=== PATIENT | female | born 1995 | race Caucasian/White ===

== ENCOUNTER 2023-02-28 16:04 | Outpatient (REF) | payer MEDICAID, SELFPAY ==
[2023-02-28 17:25] LABS: MANUAL DIFF FLAG NO
[2023-02-28 17:41] LABS: Basophils Percent Auto 0.2 % (0-2); Eosinophils Absolute Auto 0.1 X10*3/uL (0.0-0.4); Eosinophils Percent Auto 1.2 % (0-4); Hemoglobin 12.7 g/dl (12.0-16.0); Imm Gran Abs Auto 0.04 X10*3/uL (0.00-0.03); Imm Gran Pct Auto 0.4 % (0.0-0.4); Lymphocytes Percent Auto 27.8 % (20-40); Mean Corpuscular HGB Conc 32.6 g/dl (31.0-35.0); Mean Corpuscular Hemoglobin 29.5 pg (27.0-33.0); Mean Corpuscular Volume 90.5 fL (80.0-98.0); Mean Platelet Volume 10.6 fL (9.4-12.3); Monocytes Absolute Auto 0.8 X10*3/uL (0.1-1.2); Monocytes Percent Auto 7.4 % (2-11); Neutrophils Absolute Auto 6.7 x10*3/uL (2.0-8.3); Platelet Count 196 X10*3/uL (160-400); Red Blood Count 4.31 X10*6/uL (4.20-5.50); Red Cell Distribution Width 14.2 % (11.0-16.0); White Blood Count 10.6 X10*3/uL (4.8-10.8)
[2023-02-28 18:28] LABS: Iron 112 mcg/dL (30-160); Percent Iron Saturation 32 % (15-50); Total Iron Binding Capacity 352 mcg/dL (228-428); Unsaturated Iron Binding 240 ug/dL
[2023-02-28 18:35] LABS: Ferritin 43 ng/mL (10-122); Vitamin D 25-OH Total 11.6 ng/mL (>30)
[2023-03-01 06:07] LABS: HBsAGNum1 0.43 S/CO (0.00-0.99); HIV AB/AG Nonreactive (Nonreactive); HIV Num 1 0.05 S/CO (0.00-0.99); Hepatitis B Surface Antigen Negative (Negative)
[2023-03-01 06:09] LABS: ~HepC Num1 0.09 S/CO (0.00-0.79); ~Hepatitis C Antibody Nonreactive (Nonreactive)
[2023-03-01 11:55] LABS: CT PCR NOT DETECTED (Not Detect.); NG PCR NOT DETECTED (Not Detect.)
[2023-03-01 15:00] LABS: BV Int Neg Control Negative (Negative); BV Int Pos Control Positive (Positive)
[2023-03-02 08:50] LABS: Syphilis Screen Nonreactive (Nonreactive)
== END 2023-02-28 16:05 | disposition home or self-care (01) ==
LOC: HO.HHCL 16:04
PROVIDERS: Visit Provider Family Medicine
DX: Z11.4 Encounter for screening for human immunodeficiency virus [HIV] (principal); Z11.3 Encounter for screening for infections with a predominantly sexual mode of transmission; N89.8 Other specified noninflammatory disorders of vagina; E55.9 Vitamin D deficiency, unspecified; Z86.2 Personal history of diseases of the blood and blood-forming organs and certain disorders involving the immune mechanism
CPT/HCPCS: 0353U; 36415; 82306; 82728; 83540; 85025; 86780; 86803; 87086; 87340; 87389; 87480; 87510; 87660

== ENCOUNTER 2024-05-10 16:13 | Outpatient (REF) | payer MEDICAID, SELFPAY ==
[2024-05-11 05:43] LABS: CT PCR NOT DETECTED (Not Detect.); NG PCR NOT DETECTED (Not Detect.)
[2024-05-11 08:13] LABS: HIV AB/AG Nonreactive (Nonreactive); HIV Num 1 0.06 S/CO (0.00-0.99)
[2024-05-12 13:33] LABS: HCV Log PCR <1.18 NOT DETECTED Log IU/mL (NOT DETECTED); HepC Viral Load <15 NOT DETECTED IU/mL (NOT DETECTED)
[2024-05-14 17:58] LABS: RPR Rapid Plasma Reagin NON-REACTIVE (NON-REACTIVE)
== END 2024-05-10 16:14 | disposition home or self-care (01) ==
LOC: HO.HHCL 16:13
PROVIDERS: Visit Provider Registered Nurse
DX: Z30.09 Encounter for other general counseling and advice on contraception (principal)
CPT/HCPCS: 36415; 86592; 87389; 87491; 87522; 87591

== ENCOUNTER 2024-09-01 16:57 | Outpatient (REF) | payer MEDICAID, SELFPAY ==
--- NOTE | ~2024-09-01 | MR_ITS ---
EXAMINATION: MR BRAIN /TRIGEMINAL PROTOCOL WITHOUT AND WITH CONTRAST CLINICAL INFORMATION: Left facial pain. COMPARISON: None available. TECHNIQUE: Multiplanar, multisequence MRI of the brain/trigeminal protocol was obtained before and after the intravenous administration of 8.5 mL (Gadavist) without reported immediate complications. FINDINGS: The Meckel's caves demonstrated no signal abnormality or enhancing lesion. Cisternal segments and entry zones of the trigeminal nerves demonstrate no signal abnormality or enhancing mass. No signal abnormality or enhancing mass at the foramen ovale or foramen rotundum. No enhancing mass in the perimesencephalic cisterns. Flow-void signal within the main vessels is normal. There is a right anterior inferior cerebellar artery type III pattern. There is a left-sided anterior inferior cerebellar artery type II pattern. The cochlear and vestibular components of the 8th cranial nerves demonstrated no enhancing mass or signal abnormality. The main cerebral venous sinuses are patent. No restricted diffusion. No acute intracranial hemorrhage, mass effect, midline shift, hydrocephalus or herniation. Sellar/suprasellar region demonstrated no enhancing lesion or masses. The olfactory bulbs demonstrated no signal abnormality or enhancing lesion. No signal abnormality or enhancing lesion within the hippocampi. Craniocervical junction is intact and normal. Aldrich-white matter differentiation is normal. Mucosal thickening, ethmoid air cells and left frontal sinus and left frontal ethmoid recess. No signal abnormality or enhancing lesion within the orbits. Dextroconvex nasal septum configuration. MR/MR head/brain wo/w con IMPRESSION: No signal abnormality or enhancing lesion at the trigeminal nerves. Mild paranasal sinus disease, more conspicuous on the left side. Electronically signed by: Hamilton Beckett MD 09/03/2024 03:46 PM KORIN OSEGUERA
--- OUTSIDE RECORDS SUMMARY | 2024-09-01 17:01 | XMS_ITS | Encounter Summary ---
Author Organization [employer] Address [address] [facility] [address] [place] [address] Care Team Providers Care Radio Communication Coordinator Name Role Phone Queenie Valdovinos Primary Care Provider [phone] Reason for Visit * Reason Onset Date Comments Nurse Triage 08/09/2024 Encounter Details Date Type Department Care Team ([facility] st Contact Info) Description 08/09/2024 Telephone [facility] [address] [place] [address] Queenie Valdovinos FNP [address] [place], [place] [phone] Nurse Triage Social History Tobacco Use Types Packs/Day Years Used Date Smoking Tobacco: Some Days Cigarettes Smokeless Tobacco: Never Alcohol Use Standard Drinks/Week Comments Never 0 (1 standard drink = 0.6 oz pur e alcohol) Depression Answer Date Recorded Patient Health Questionnaire-9 Score 13 11/04/2023 Patient Health Questionnaire-9 Score 13 11/04/2023 Last PHQ-9: Questionnaire Data Not on file 0 11/04/2023 Housing Stability Answer Date Recorded What is your housing situation today? I do not have housing (Staying with others, in a hotel, in a care home, living outside on the street, on a beach, in a car, or in a park 05/16/[address] you li ve. Do you have problems with any of the following? None of the above 05/16/2023 Food Insecurity Answer Date Recorded Within the past 12 months, y ou worried that your food would run out before you got money to buy more: Never True 05/27/2023 Within the past 12 months,th e food you bought just didn't last and you didn't have enough money to get more: Never True Transportation Answer Date Recorded In the past 12 months, has l ack of transportation kept you from medical appts, meetings, work or from getting things needed for daily living? No 05/27/2023 Utilities Answer Date Recorded In the past 12 months, has t he electric, gas, oil or water company threatened to shut off services in your home? No 05/27/2023 Depression Answer Date Recorded Patient Health Questionnaire-2 Score 3 11/04/2023 Comments Unknown Sex and Gender Information Value Date Recorded Sex Assigned at Female 06/07/2022 10:33 AM EDT Legal Sex Female 10:33 AM EDT Gender Identity Female 06/07/2022 10:33 AM EDT Sexual Orientation Something else 06/07/2022 10 :33 AM EDT documented as of this encounter Miscellaneous Notes * Telephone Encounter - Bridget Gibbs RN - 08/09/2024 9:04 AM EST called pt to triage, spoke to pt. pt states diagnosed with Trigeminal Neuralgia a while ago, and having a flare. pt states episodes last from a few seconds to most of the day. pt not currently takinganything but Tylenol which does not help. pt uses pressure and heat mostly with varying degrees of relief. pt requesting Neurology referral. given appt tomorrow with [facility] provider at 9:15 for exam. advised home care: apply heat, pressure to the area, and call back as needed. pt understands and agrees with plan. insurance verified. Protocol Used: Neurologic Deficit (Adult) Protocol-Based Disposition: See in Office or Video Visit within 3 Days Positive Triage Question: * Pain and tingling one side of face. * All higher-acuity triage questions were negative Care Advice Discussed: * Reasons To Call Back - Symptoms do not go away within 10 to 15 minutes - You become worse * Telephone Encounter - Joseph Garcia - 08/09/2024 8:36 AM EST Symptom: Pain - Severe Outcome: Transfer to a nurse or provider NOW! Reason: Feels a excruciating stabbing pain on one side of her face. documented in this encounter Plan of Treatment Upcoming Encounters Date Type Department Care Team ([facility] st Contact Info) Description 09/14/2024 3:30 PM EST Office Visit [facility] MED & PEDS [address] [place] [address] Queenie Valdovinos FNP [address] [place] [address] documented as of this encounter Visit Diagnoses Not on filedocumented in this encounter Additional Health Concerns Assessment Noted Time PHQ-9 Depression Total Score: 13 11/03/ 024 3:52 PM EDT documented as of this encounter Care Teams Radio Communication Coordinator Relationship Specialty Start Date End Date Queenie Valdovinos FNP [address] [place] [address] PCP - General Family Medicine 04/07/22 documented as of this encounter
--- OUTSIDE RECORDS SUMMARY | 2024-09-01 17:01 | XMS_ITS | Encounter Summary ---
Author Organization [employer] Address [address] [facility] 7 [place] [address] Care Team Providers Care Grass Cutter Name Role Phone Queenie Valdovinos Primary Care Provider [phone] Reason for Referral * Imaging (Routine) - Authorized Specialty Diagnoses / Procedures Referred By Contac t Referred To Contact Radiology Diagnoses Electrical shock sensation Procedures Mr Brain w/ and w/o Contrast Hoa Valladares NP [address] [place] [address] Phone: tel: fax: [address] Phone: tel: fax: Referral ID Status Reason Start Date Expiration Date V isits Requested Visits Authorized [id number] Authorized 08/21/2024 08/21/2025 1 1 Reason for Visit * Reason Onset Date Comments MRI BRAIN ORDER 08/21/2024 Encounter Details Date Type Department Care Team (Late st Contact Info) Description 08/21/2024 Telephone [facility] [address] [place] [address] Vaishali Davis MD [address] [place] [phone] MRI BRAIN ORDER Social History Tobacco Use Types Packs/Day Years Used Date Smoking Tobacco: Some Days Cigarettes Passive Smoke Exposure: Current Smokeless Tobacco: Never Alcohol Use Standard Drinks/Week [...] with others, in a hotel, in a prison, living outside on the street, on a [...] as of this encounter Miscellaneous Notes * Addendum Note - Hoa Valladares NP - 08/21/2024 4:32 PM ESTAddended by: HOA VALLADARES on: 08/21/2024 04:32 PM Modules accepted: Orders * Telephone Encounter - Sharron Brandt - 08/21/2024 2:01 PM EST MRI BRAIN ORDER needs to be with and without contrast. documented in this encounter Plan of Treatment Upcoming Encounters Date Type Department Care Team (Late st Contact Info) Description 09/14/2024 3:30 PM EST Office Visit [facility] MED & PEDS [address] [place], [place] [phone] Queenie Valdovinos FNP [address] [place] [address] Scheduled Orders Name Type Priority Associated Diagnoses Orde r Schedule Mr Brain w/ and w/o Contrast Imaging Routine Electrical shock sensation Expected: 08/21/2024, Expires: 08/21/2025 documented as of this encounter Visit Diagnoses Diagnosis Electrical shock sensation- Primary documented in this encounter Additional Health Concerns Assessment Noted Time PHQ-9 Depression Total Score: 13 11/03/ 024 3:52 PM EDT documented as of this encounter Care Teams Grass Cutter Relationship Specialty Start Date End Date Queenie Valdovinos FNP [address] [place] [address] PCP - General Family Medicine 04/07/22 documented as of this encounter
--- OUTSIDE RECORDS SUMMARY | 2024-09-01 17:01 | XMS_ITS | Clinical Summary ---
Author Organization [employer] Address [address] [facility] 7t [place] [address] Care Team Providers Care 3D Animator Name Role Phone Queenie Valdovinos RASHAD Primary Care Provider [phone] Allergies Active Allergy Reactions Criticality Noted Date Comments Niño Rash Low 11/02/2017 Other reaction(s): RASH/HIVES Niño Flavoring Agent (Non-Screening) Hives 11/19/2019 Medications cetirizine (ZyrTEC) 10 MG tablet Take 10 mg by mouth in the morning. 2 Active fluticasone (Flonase) 50 MCG/ACT nasal spray USE 1-2 SPRAYS IN EACH NOSTRIL DAILY NEEDED FOR ALLERGY SYMPTOMS 2 Active Multiple Vitamin (Daily-Helen Multivitamin) tablet Take 1 tablet by mouth in the morning. 2 Active cholecalciferol (Vitamin D-3) 50 MCG (2000 UT) capsule Take 1 capsule (50 mcg) by mouth in the morning. 30 capsule 11 3 Active hydrOXYzine pamoate (Vistaril) 25 MG capsuleIndication s:Anxiety TAKE 1 CAPSULE 4 TIMES PER DAY NEEDED MAY TAKE 2 CAPS AT ONCE, DO NOT EXCEED 4 CAPS IN 24HRS 100 capsule 3 3 Active mirtazapine (Remeron) 7.5 MG tabletIndications :Anxiety TAKE 1 TABLET BY MOUTH AT BEDTIME. 30 tablet 1 4 Active FLUoxetine (PROzac) 40 MG capsuleIndication s:Anxiety TAKE 1 CAPSULE BY MOUTH DAILY 90 capsule 3 4 Active Drospirenone (Slynd) 4 MG tabletIndications : control counseling,Dysmen orrhea Take 1 tablet by mouth Once per day. 90 tablet 3 4 Active amphetamine-dextr oamphetamine (Adderall) 10 MG tabletIndications :Attention deficit hyperactivity disorder (ADHD), unspecified ADHD type TAKE 1 TABLET BY MOUTH EVERY DAY AFTER LUNCH 28 tablet 4 Active amphetamine-dextr oamphetamine XR (Adderall XR) 20 MG 24 hr capsuleIndication s:Attention deficit hyperactivity disorder (ADHD), unspecified ADHD type TAKE 1 CAPSULE BY MOUTH EVERY DAY. DO NOT CRUSH OR CHEW. 28 capsule 4 Active carBAMazepine XR (TEGretol-XR) 100 MG 12 hr tablet Take 1 tab orally twice a day for trigeminal neuralgia 60 tablet 3 5 Active Active Problems Problem Noted Date Diagnosed Date Alternating constipation and diarrhea 05/28/2024 Assessment & Plan (05/28/2024 9:48 PM EDT): - History of GI symptoms dating back to childhood (first recalled around 6 y/o) - Symptoms include nausea, abdominal pain, bloating, alternative constipation and diarrhea, pain/discomfort with Bms. Worsens with menses - Reports GI eval in the past, although unclear regarding testing/tx/diagnoses. - DDX: IBS vs H Pylori vs IBD vs gastroenteritis vs med SE vs other - No red flag symptoms, referral to GI for further eval placed 05/28/24 Dysmenorrhea 04/29/2024 Overview (04/29/2024): Following with [facility]YPING [facility] (consult Jun 2023) Assessment & Plan (05/28/2024 9:39 PM EDT): -Initiated on POP Slynd on 04/27/24. Med med use and SE -Did not receive medication, called and spoke with [facility] in [place] and they will plan to fill today Assessment & Plan (04/29/2024 7:39 PM EDT): -Initiated on POP Slynd on 04/27/24. Med med use and SE -Currently with menses, encourage back up method such as condom for the next 7 days Attention deficit hyperactivity disorder (ADHD) 06/18/2023 Overview (05/28/2024): Continues with Adderall 20mg XR QAM and Adderall 10mg daily after lunch BH: engaged with therapy Assessment & Plan (05/28/2024 9:40 PM EDT): Good response and therapeutic effect Denies med SE Continue with current therapy Assessment & Plan (04/29/2024 7:48 PM EDT): Noting improvement in symptoms for 4-6 hours; however, declining therapeutic effect in the afternoon. START Adderall 10mg daily after lunch. Reviewed med safety and SE Assessment & Plan (07/24/2023 8:25 PM EST): ?? Noting improvement in symptoms for 4-6 hours after initiation of Adderall 10mg XR. However, declining therapeutic effect in the afternoon. ?? Adderall 5mg immediate release after lunch did not seem to have noted benefit/effect ?? Plan: ?? STOP Adderall 5mg after lunch ?? CONT Adderall 10mg XR QAM. During follow up visit, may plan to increase to 20mg XR QAM. Assessment & Plan (06/18/2023 5:16 PM EST): ?? Noting improvement in symptoms for 4-6 hours after initiation of Adderall 10mg XR. However, declining therapeutic effect in the afternoon. Shared decision making to initiate Adderall 5mg immediate release after lunch. Reviewed med safety and use Routine health maintenance 10/25/2022 Overview (04/01/2023): Optometry: discuss at f/u Dental: discuss at f/u Pap: 12/13/2017 NILM. Believes she had another one collected during with last child WNL Electrical shock sensation 10/25/2022 Overview (10/25/2022): -Episodes described as electric zaps that occurred on half of face and would radiate into jaw bone -Initial episode Jun 2020 -Episodes are currently less severe in nature, but continue to be bothersome -Differential of possible trigeminal neuralgia -Initial eval by [facility] - Dr. Dodd in May 2022. Will request notes. -Request for 2nd opinion, referral placed 10/25/22 Assessment & Plan (02/26/2023 10:45 AM EDT): Contact info for [facility] provided Anxiety 03/10/2020 Overview (06/18/2023): ?? Established with therapist Catrachita through [facility] (on wait list for psychiatrist through [facility]) ?? Cont fluoxetine 40mg daily ?? Cont hydroxyzine 25mg QID PRN Assessment & Plan (09/11/2023 6:00 PM EST): -Planning to start mirtazapine 7.5mg daily when appropriate with home environment Assessment & Plan (07/24/2023 8:23 PM EST): - Start mirtazapine 7.5mg nightly. Reviewed med safety and SE. - Follow up in 1-2 weeks Assessment & Plan (04/02/2023 3:21 PM EDT): Follow up in 1 month, sooner PRN Assessment & Plan (02/26/2023 10:44 AM EDT): Plan: PCP to contact therapist for further discussion of psych med management. Encounters Date Type Department Care Team Description 08/21/2024 Telephone [facility] [employer] [address] [place] [address] Vaishali Davis MD MRI BRAIN ORDER 08/10/2024 9:15 AM EST Office Visit [facility] & PEDS [address] [place], [place] [phone] Vaishali Davis MD Electrical shock sensation (Primary Dx); Left-sided face pain; Family history of trigeminal neuralgia 08/10/2024 Travel 08/09/2024 Telephone [facility] MEDICINE [address] [place] [address] Queenie Valdovinos FNP Nurse Triage 08/07/2024 Telephone [facility] [address] [place] [address] Queenie Valdovinos FNP Referral 07/25/2024 Refill [facility] [address] [place] [address] Queenie Valdovinos FNP Attention deficit hyperactivity disorder (ADHD), unspecified ADHD type from Last 3 Months Immunizations Name Administration Dates Next Due DTaP 04/18/2001, 8,1996,05/23,1996 HPV, Quadrivalent 02/13/2007,10/14/2006,08/16/19 07 Hep B, Unspecified 1996,1996, 996 HiB, unspecified 05/22/1997, 6,1996,03/21 IPV 04/18/2001, 8,1996,05/23,1996 Influenza injectable quadriv alent preservative free 05/30/2020,06/10/2018 Influenza, IIV3, injectable 04/27/2012, 7 Influenza, seasonal, injecta ble, preservative free 06/05/2014 MMR 03/24/2000,05/22/1997 Meningococcal ACWY, unspecified 04/27/2012 Tdap 04/09/2020,03/06/2018,06/05/2014 Varicella 09/04/1997,05/22/1997 Family History Medical History Relation Name Comments Glaucoma Maternal Grandmother Relation Name Status Comments Maternal Grandmother Social History Tobacco Use Types Packs/Day Years Used Date Smoking Tobacco: Some Days Cigarettes Passive Smoke Exposure: Current Smokeless Tobacco: Never Tobacco Cessation:Ready to Q uit: Not Asked; Counseling Given: Not Answered Alcohol Use Standard Drinks/Week Comments Never 0 [...] with others, in a hotel, in a detention, living outside on the street, on a [...] Something else 06/07/2022 10 :33 AM EDT Last Filed Vital Signs Vital Sign Reading Time Taken Comments Blood Pressure 112/66 08/10/2024 9:27 AM EST Pulse 72 08/10/2024 9:27 AM EST Temperature 36.4 ??C (97.5 ??F) 08/10/2024 9:27 AM ES T Respiratory Rate 20 08/10/2024 9:27 AM EST Oxygen Saturation 98% 08/10/2024 9:27 AM EST Inhaled Oxygen Concentration - - Weight 89.8 kg (198 lb) 08/10/2024 9:27 AM EST Height 171.5 cm (5' 7.5 ) 08/10/2024 9:27 AM EST Body Mass Index 30.55 08/10/2024 9:27 AM EST Plan of Treatment Upcoming Encounters Date Type Department Care Team ([facility] st Contact Info) Description 09/14/2024 3:30 PM EST Office Visit [facility]EDS [address] [place] [address] Queenie Valdovinos, RASHAD [address] [place] [address] Health Maintenance Due Date Last Done Comments Pneumococcal Vaccine: Pediatrics (0 to 5 Years) and At-Risk Patients (6 to 64 Years) (1 of 2 - PCV) 02/05/2002 Alcohol/Substance Use Screening 2008 Family Planning (PISQ) 02/05/2011 Pap Smear 02/05/2017 SDOH Screening 02/26/2024 02/25/2023 COVID-19 Vaccine ( season) 2024 12/28/2020, 11/30/2020 Influenza Vaccine (#1) 2024 , 06/10/2018, 06/05/2014, Additional history exists Depression Monitoring (PHQ-9) 05/06/2024 11/04/2023, 11/04/2023 Depression Screening 11/03/2024 11/04/2023, 11/04/19 Tobacco Screening 08/10/2025 08/10/2024 Lipid Panel 10/28/2027 10/27/2022 DTaP/Tdap/Td Vaccines (9 - Td or Tdap) 04/09/2030 04/09/2020, 03/06/2018, 06/05/2014, Additional history exists Zoster Vaccines (1 of 2) 02/05/2046 RSV Patients and Patients Aged 60 years or older (1 - 1-dose 75+ series) 02/05/2071 Hepatitis B Vaccines Completed 1996, 1996, 1996 HIB Vaccines Completed 05/22/1997, 07/08, 1996, Additional history exists IPV Vaccines Completed 04/18/2001, 03/09, 1996, Additional history exists HPV Vaccines Completed 02/13/2007, 04/2007, 10/14/2006, Additional history exists Meningococcal Vaccine Completed 04/27/2012 HIV Screening Completed 05/10/2024, 02/06, 10/27/2022, Additional history exists Hepatitis C Screening Completed 05/10/2024 , 02/28/2023, 10/27/2022, Additional history exists Hepatitis A Vaccines Aged Out No long er eligible based on patient's age to complete this topic RSV under 20 months Aged Out No longe r eligible based on patient's age to complete this topic Rotavirus Vaccines Aged Out No longer eligible based on patient's age to complete this topic Procedures Procedure Name Priority Date/Time Associated Diagnosis Comments HEPATITIS C VIRAL RNA, QUANTITATIVE, REAL-TIME PCR Routine 05/10/2024 4:16 PM EDT control counseling HIV 1/2 ANTIGEN/ANTIBODY, FOURTH GENERATION W/RFL Routine 05/10/2024 4:16 PM EDT control counseling LIPID PANEL, STANDARD Routine 10/27/2022 12:25 PM EDT Routine health maintenance from Last 3 Months or Most Recently Relevant to Health Maintenance Results * Hepatitis C Viral RNA, Quantitative, Real-Time PCR (05/10/2024 4:16 PM EDT) Hepatitis C Viral Load <15 NOT DETECTED NOT DETECTED IU/mL [facility] HCV Log PCR <1.18 NOT DETECTED NOT DETECTED Log IU/mL [facility] Comment:For additional infor matdewayne, please refer tohttp://education.[employer].vidCoin/faq/SUW79a1(This link is being provided for informational/educational purposes only.)THIS TEST WAS PERFORMED AT:[employer] [place] [phone] SORIANO MD Blood 05/10/2024 4:16 PM EDT 05/10/2024 5:19 PM EDT us Queenie Valdovinos [employer] LAB BLOOD ORDERABLES Final Res ult [facility] [address] [place], [place] [phone] * HIV-1/2 Antigen and Antibodies, Fourth Generation, with Reflexes (05/10/2024 4:16 PM EDT) Pathologist [facility] HIV AB/AG Nonreactive Nonreactive [facility] Comment:HIV-1 p24 Ag and/or HIV-1/HIV-2 Ab not detected.A test result that is nonreactive does not exclude thepossibility of exposure to or infection with HIV-1 and/orHIV-2. Nonreactive results in this assay for individualswith prior exposure to HIV-1 and/or HIV-2 may be due toantigen and antibody levels that are below the limit ofdetection of this assay.The [employer] HIV Ag/Ab Combo assay result andsupplemental assay results should be interpreted inconjunction with the patient's clinical presentation,history and other laboratory results. If the results areinconsistent with clinical evidence, additional testing issuggested to confirm the result. Blood Venous blood specimen / Unknown 05/10/2024 4:16 PM EDT 05/10/2024 5:19 PM EDT us Queenie Valdovinos [facility] LAB BLOOD ORDERABLES Final Res ult [facility] [address] [place] [phone] * (ABNORMAL) Lipid Panel, Standard (10/27/2022 12:25 PM EDT) [facility] Cholesterol, Total 131 <200 mg/dL [facility] [place] [facility] HDL Cholesterol 42(L) > OR = 50 mg/dL [facility] [place] [facility] Triglycerides 73 <150 mg/dL [facility] [place] [facility] LDL Cholesterol 74 mg/dL (calc) [facility] [place] [facility] Comment: Reference range: <100 Desirable range <100 mg/dL for primary prevention; ?? <70 mg/dL for patients with CHD or diabetic patients with > or = 2 CHD risk factors. LDL-C is now calculated using the Edwin-Diaz calculation, which is a validated novel method providing better accuracy than the Friedewald equation in the estimation of LDL-C. Edwin SS et al. BETSY. 2013;310(19): 5410-3920 (http://education.[employer]vidCoin/faq/EPZ963) Chol/HDLC Ratio 3.1 <5.0 (calc) [facility] [place] [facility] Non-HDL Cholesterol 89 <130 mg/dL (calc) [facility] [place] [facility] Comment: For patients with diabetes plus 1 major ASCVD risk factor, treating to a non-HDL-C goal of <100 mg/dL (LDL-C of <70 mg/dL) is considered a therapeutic option. Blood Venous blood specimen / Unknown 10/27/2022 12:25 PM EDT 10/27/2022 12:28 PM EDT Queenie Valdovinos [employer] LAB BLOOD ORDERABLES Final Res ult [facility] [address], [address] [place] [address] [facility] [address] [place] [phone] from Last 3 Months or Most Recently Relevant to Health Maintenance Insurance [facility] C3 Care Teams 3D Animator Relationship Specialty Start Date End Date Queenie Valdovinos FNP [address] [place] [phone] PCP - General Family Medicine 04/07/22
--- OUTSIDE RECORDS SUMMARY | 2024-09-01 17:01 | XMS_ITS | Encounter Summary ---
Author Organization [employer] Address [address] [facility] [address] [place] [address] Care Team Providers Care Interactive Art Director Name Role Phone Jey Valdovinosle SEAL EXTRUSION OPERATOR Primary Care Provider Reason for Referral * Imaging (Routine) - Canceled Specialty Diagnoses / Procedures Referred By Contac t Referred To Contact Radiology Diagnoses Electrical shock sensation Left-sided face pain Family history of trigeminal neuralgia Procedures MRI BRAIN W CONTRAST Vaishali Davis MD [address] [place] [address] Phone: tel: fax: [address] Phone: tel: fax: Referral ID Status Reason Start Date Expiration Date V isits Requested Visits Authorized [id number] Canceled 08/10/2024 08/10/2025 1 1 Encounter Details Date Type Department Care Team (Late st Contact Info) Description 08/10/2024 9:15 AM EST Office Visit [facility] [address] [place], [place] [phone] Vaishali Davis MD [address] [place], [place] [phone] Electrical shock sensation (Primary Dx); Left-sided face pain; Family history of trigeminal neuralgia Social History Tobacco Use Types Packs/Day Years [...] with others, in a hotel, in a [place] [facility] [place], living outside on the street, on a [...] AM EDT documented as of this encounter Last Filed Vital Signs Vital Sign Reading [...] Mass Index 30.55 08/10/2024 9:27 AM EST documented in this encounter Progress Notes * Vaishali Davis MD - 08/10/2024 9:15 AM EST Subjective Patient ID: Siria Gonzalez is a 29 y.o. female who presents for pain side of face. Siria is a 29 y/o female patient of VIOLET Valdovinos here as a walk in patient with left facial pain ( severe and acute) . She thinks she has trigeminal neuralgia , hurts when she chews,bites,drinks,etc.. Pain is shooting,electric zap like. Only meds are adderal and fluoxetine.First episode was in 2021 and lasted 8 days.Went to Er at [facility] and no imaging studies were done.Saw neurology and was told needed an mri but it wasn't scheduled properly so it was never done. Review of Systems Constitutional: Negative for activity change, chills, fever and unexpected weight change. HENT: Negative for dental problem, drooling, ear discharge, ear pain, facial swelling, hearing loss, mouth sores, rhinorrhea, sore throat, trouble swallowing and voice change. Left jaw pain Respiratory: Negative for cough, shortness of breath and wheezing. Cardiovascular: Negative for chest pain, palpitations and leg swelling. Gastrointestinal: Negative for abdominal pain and blood in stool. Endocrine: Negative for polydipsia and polyuria. Genitourinary: Negative for decreased urine volume, difficulty urinating, dysuria and hematuria. Musculoskeletal: Negative for arthralgias and gait problem. Skin: Negative for color change and rash. Neurological: Positive for headaches. Negative for dizziness, tremors, seizures, syncope, facial asymmetry, speech difficulty, weakness, light-headedness and numbness. Hematological: Negative for adenopathy. Psychiatric/Behavioral: Negative for dysphoric mood, hallucinations, sleep disturbance and suicidalideas. The patient is not nervous/anxious. Objective BP 112/66 (BP Location: Left arm, Patient Position: Sitting, BP Cuff Size: Adult) Pulse72 Temp 97.5 ??F (36.4 ??C) (Oral) Resp 20 Ht 5' 7.5 (1.715 m) Wt 198 lb (89.8 kg) SpO2 98% BMI 30.55 kg/m?? Physical Exam Vitals reviewed. Constitutional: Appearance: Normal appearance. She is not toxic-appearing. HENT: Head: Normocephalic. Right Ear: Tympanic membrane, ear canal and external ear normal. Left Ear: Tympanic membrane, ear canal and external ear normal. Nose: Nose normal. No congestion. Mouth/Throat: Mouth: Mucous membranes are moist. Pharynx: Oropharynx is clear. No oropharyngeal exudate or posterior oropharyngeal erythema. Eyes: General: No visual field deficit. Extraocular Movements: Extraocular movements intact. Conjunctiva/sclera: Conjunctivae normal. Pupils: Pupils are equal, round, and reactive to light. Neck: Thyroid: No thyroid mass. Cardiovascular: Rate and Rhythm: Normal rate and regular rhythm. Pulmonary: Effort: Pulmonary effort is normal. No respiratory distress. Breath sounds: Normal breath sounds. Musculoskeletal: Cervical back: Normal range of motion. No erythema, rigidity or tenderness. Lymphadenopathy: Cervical: No cervical adenopathy. Skin: Findings: No erythema, lesion or rash. Neurological: General: No focal deficit present. Mental Status: She is alert and oriented to person, place, and time. Sensory: Sensation is intact. Motor: Motor function is intact. Psychiatric: Mood and Affect: Mood normal. Behavior: Behavior normal. Assessment/Plan Diagnoses and all orders for this visit: Electrical shock sensation - MRI BRAIN W CONTRAST; Future Left-sided face pain Comments: Seems she has trigeminal neuralgia,diagnosis never determined by imaging study.MRI of brain with contrast ordered today,importance of keeping appointment discussed with her. F/U with PCP scheduled tofollow up on MRI findings and maybe neuro referral etc.. Low dose 100 mg bid carbamazepine started as well for pain relief and prevention. Orders: - MRI BRAIN W CONTRAST; Future Family history of trigeminal neuralgia - MRI BRAIN W CONTRAST; Future Other orders - carBAMazepine XR (TEGretol-XR) 100 MG 12 hr tablet; Take 1 tab orally twice a day for trigeminal neuralgia documented in this encounter Plan of Treatment Upcoming Encounters Date Type Department Care Team (Late st Contact Info) Description 09/14/2024 3:30 PM EST Office Visit [facility] [address] [place] [address] Queenie Valdovinos FNP [address] [place] [address] Scheduled Orders Name Type Priority Associated Diagnoses Orde r Schedule MRI BRAIN W CONTRAST Imaging Routine Electrical shock sensation Left-sided face pain Family history of trigeminal neuralgia Expected: 08/10/2024, Expires: 08/10/2025 documented as of this encounter Visit Diagnoses Diagnosis Electrical shock sensation- Primary Left-sided face pain Headache Family history of trigeminal neuralgia Family history of other neurological diseases documented in this encounter Additional Health Concerns Assessment Noted Time PHQ-9 Depression Total Score: 13 024 3:52 PM EDT documented as of this encounter Care Teams Interactive Art Director Relationship Specialty Start Date End Date Queenie Valdovinos FNP [address] [place] [address] PCP - General Family Medicine 04/07/22 documented as of this encounter
--- OUTSIDE RECORDS SUMMARY | 2024-09-01 17:01 | XMS_ITS | Encounter Summary ---
Author Organization [employer] Address [address] [facility] [address] [place] [address] Care Team Providers Care Purchase Request Editor Name Role Phone Queenie Valdovinos LICENSED LOAN OFFICER Primary Care Provider [phone] Encounter Details Date Type Department Care Team (Latest Contact Info) Description 08/10/2024 Travel Social History Tobacco Use Types Packs/Day Years [...] with others, in a hotel, in a senior care, living outside on the street, on a [...] AM EDT documented as of this encounter Plan of Treatment Upcoming Encounters Date Type Department Care Team (Late st Contact Info) Description 09/14/2024 3:30 PM EST Office Visit [facility] [address] [place] [address] Queenie Valdovinos FNP [address] [place] [address] documented as of this encounter Visit Diagnoses Not on filedocumented in this encounter Additional Health Concerns Assessment Noted Time PHQ-9 Depression Total Score: 13 024 3:52 PM EDT documented as of this encounter Care Teams Purchase Request Editor Relationship Specialty Start Date End Date Queenie Valdovinos FNP [address] [place] [address] PCP - General Family Medicine 04/07/22 documented as of this encounter
--- OUTSIDE RECORDS SUMMARY | 2024-09-01 17:01 | XMS_ITS | Encounter Summary ---
Author Organization [employer] Address [address] [facility] [address] [place] [address] Care Team Providers Care Break And Load Operator Name Role Phone Queenie Valdovinos Primary Care Provider [phone] Reason for Visit * Reason Onset Date Comments Referral 08/07/2024 Encounter Details Date Type Department Care Team ([facility] st Contact Info) Description 08/07/2024 Telephone [facility] [address] [place] [address] Queenie Valdovinos FNP [address] [place], [place] [phone] Referral Social History Tobacco Use Types Packs/Day Years [...] with others, in a hotel, in a correction, living outside on the street, on a [...] encounter Miscellaneous Notes * Telephone Encounter - Carlitos Tran - 08/07/2024 9:38 AM EST Tc from pt requesting a referral to neurology and pt states that they are having a stabbing/electric shock feeling on left side of face and pt states if you can recommend some pain relief it would begreat because pt states they can not work with the nerve pain. documented in this encounter Plan of Treatment Upcoming Encounters Date Type Department Care Team (Late st Contact Info) Description 09/14/2024 3:30 PM EST Office Visit [facility] [address] [place] [address] Queenie Valdovinos FNP [address] [place] [address] documented as of this encounter Visit Diagnoses Not on filedocumented in this encounter Additional Health Concerns Assessment Noted Time PHQ-9 Depression Total Score: 13 11/03/ 024 3:52 PM EDT documented as of this encounter Care Teams Break And Load Operator Relationship Specialty Start Date End Date Queenie Valdovinos FNP [address] [place] [address] PCP - General Family Medicine 04/07/22 documented as of this encounter
[2024-09-01] MEDS: gadobutroL 10 ML VIAL IVPUSH (17:39)
== END 2024-09-01 16:58 | disposition home or self-care (01) ==
LOC: HO.MRI 16:57
PROVIDERS: PCP Registered Nurse; Visit Provider Pediatrics
DX: R20.8 Other disturbances of skin sensation (principal); R51.9 Headache, unspecified; Z82.0 Family history of epilepsy and other diseases of the nervous system
CPT/HCPCS: 70553; A9585

== ENCOUNTER → 2024-09-01 17:09 | Outpatient (BNV) | payer MEDICAID, SELFPAY | PROVIDERS: PCP Registered Nurse; Visit Provider Radiology Diagnostic Radiology | DX: R51.9 Headache, unspecified (principal) | CPT/HCPCS: 70553 ==

== ENCOUNTER 2024-11-13 17:06 | Outpatient (REF) | payer MEDICAID, SELFPAY ==
--- OUTSIDE RECORDS SUMMARY | 2024-11-13 19:15 | XMS_ITS | Clinical Summary ---
Author Organization [employer] Address [address] [place] [address] Care Team Providers Care Sql Server Bi Developer Name Role Phone Queenie Valdovinos RASHAD Primary Care Provider Allergies Active Allergy Reactions Criticality Noted Date Comments Niño Rash Low 11/02/2017 Other reaction(s): RASH/HIVES Niño Flavoring Agent (Non-Screening) Hives 11/19/2019 Medications cetirizine (ZyrTEC) 10 MG tablet Take 10 mg by mouth in the morning. 04/15/20 22 Active Multiple Vitamin (Daily-Helen Multivitamin) tablet Take 1 tablet by mouth in the morning. 06/06/20 22 Active cholecalciferol (Vitamin D-3) 50 MCG (2000 UT) capsule Take 1 capsule (50 mcg) by mouth in the morning. 30 capsule 11 03/02/20 23 Active hydrOXYzine pamoate (Vistaril) 25 MG capsuleIndicatio ns:Anxiety TAKE 1 CAPSULE 4 TIMES PER DAY NEEDED MAY TAKE 2 CAPS AT ONCE, DO NOT EXCEED 4 CAPS IN 24HRS 100 capsule 3 06/17/20 23 Active mirtazapine (Remeron) 7.5 MG tabletIndication s:Anxiety TAKE 1 TABLET BY MOUTH AT BEDTIME. 30 tablet 1 10/06/19 24 Active Drospirenone (Slynd) 4 MG tabletIndication s: control counseling,Dysme norrhea Take 1 tablet by mouth Once per day. 90 tablet 3 04/27/20 24 Active carBAMazepine XR (TEGretol-XR) 100 MG 12 hr tablet Take 1 tab orally twice a day for trigeminal neuralgia 60 tablet 3 08/10/19 25 Active fluticasone (Flonase) 50 MCG/ACT nasal spray Administer 1 spray into each nostril 2 times daily. Shake gently. Before first use, prime pump. After use, clean tip and replace cap. 16 g 1 09/21/19 25 Active levonorgestrel (Plan B) 1.5 MG tablet Take 1 tablet (1.5 mg) by mouth 1 (one) time for 1 dose. Take up to 3 days after sex as needed 1 tablet 11 11/14/19 25 2024 Active ibuprofen (IBU) 800 MG tablet 1 tablet every 8 hours with food during menses, up to 7 days. 63 tablet 11/14/19 25 Active amphetamine-dext roamphetamine XR (Adderall XR) 20 MG 24 hr capsuleIndicatio ns:Attention deficit hyperactivity disorder (ADHD), unspecified ADHD type TAKE 1 CAPSULE BY MOUTH EVERY DAY. DO NOT CRUSH OR CHEW. 28 capsule 11/14/19 25 Active amphetamine-dext roamphetamine (Adderall) 10 MG tabletIndication s:Attention deficit hyperactivity disorder (ADHD), unspecified ADHD type TAKE 1 TABLET BY MOUTH EVERY DAY AFTER LUNCH 28 tablet 11/14/19 25 Active FLUoxetine (PROzac) 40 MG capsuleIndicatio ns:Anxiety TAKE 1 CAPSULE BY MOUTH DAILY 90 capsule 3 11/14/19 25 Active FLUoxetine (PROzac) 40 MG capsuleIndicatio ns:Anxiety TAKE 1 CAPSULE BY MOUTH DAILY 90 capsule 3 04/23/20 24 2024 Discontinued(R eorder (will not trigger notification to Pharmacy)) amphetamine-dext roamphetamine (Adderall) 10 MG tabletIndication s:Attention deficit hyperactivity disorder (ADHD), unspecified ADHD type TAKE 1 TABLET BY MOUTH EVERY DAY AFTER LUNCH 28 tablet 07/27/20 24 2024 Discontinued(R eorder (will not trigger notification to Pharmacy)) amphetamine-dext roamphetamine XR (Adderall XR) 20 MG 24 hr capsuleIndicatio ns:Attention deficit hyperactivity disorder (ADHD), unspecified ADHD type TAKE 1 CAPSULE BY MOUTH EVERY DAY. DO NOT CRUSH OR CHEW. 28 capsule 07/27/20 24 2024 Discontinued(R eorder (will not trigger notification to Pharmacy)) Active Problems Problem Noted Date Diagnosed Date Paranasal sinus disease 09/21/2024 Alternating constipation and diarrhea 05/28/2024 Assessment & [...] 05/28/24 Dysmenorrhea 04/29/2024 Overview (04/29/2024): Following with [facility] [employer] (consult Jun 2023) Assessment & Plan (05/28/2024 9:39 PM EDT): -Initiated on POP Slynd on 04/27/24. Med med use and SE -Did not receive medication, called and spoke with [facility] in [place] and they will plan to fill today [...] child WNL Electrical shock sensation 10/25/2022 Overview (10/08/2024): -Episodes described as electric zaps that occurred on left half of face and radiate into jaw bone -Initial episode Jun 2020, have been increasing in frequency from once every few months to once every few weeks. -Differential includes trigeminal neuralgia -Initiated on carbamazepine 100mg BID with some symptom relief -MRI brain 09/22/24 impression: There is a right anterior inferior cerebellar artery type III pattern. There is a left-sided anterior inferior cerebellar artery type II pattern. No signal abnormality or enhancing lesion at the trigeminal nerves. -Referral to [facility] sent 10/08/24 Assessment & Plan (02/26/2023 10:45 AM EDT): Contact info for [facility] provided Anxiety 03/10/2020 Overview (06/18/2023): ?? Established with therapist Catrachita through [facility] (on wait list for psychiatrist through [facility]) ?? Cont fluoxetine 40mg daily ?? Cont [...] Encounters Date Type Department Care Team Description 11/13/2024 2:15 PM EDT Procedure Visit [facility] MEDICINE [address] [place] [address] Simi Thomas CNM Menorrhagia with regular cycle (Primary Dx); Cervical cancer screening; Family planning counseling; Attention deficit hyperactivity disorder (ADHD), unspecified ADHD type; Anxiety 11/13/2024 Travel 11/01/2024 Patient Outreach [facility] [address] [place] [address] Queenie Valdovinos FNP Care Coordination (Outreach) 10/19/2024 Population Health Risk Score [facility] Department [address] [phone] Provider, Population Health Generic 10/19/2024 Patient Outreach [facility] [address] [place] [address] Queenie Valdovinos FNP Care Coordination (Outreach) 10/08/2024 10:15 AM EST Office Visit [facility] [address] [place] [address] Queenie Valdovinos FNP Electrical shock sensation (Primary Dx); Encounter for immunization 10/08/2024 Travel 10/05/2024 Telephone [facility] [address] [place] [address] Emilee Alvarenga MA Chart Prep 10/03/2024 Patient Outreach [facility] [address] [place] [address] Queenie Valdovinos FNP Care Coordination (Outreach) 09/26/2024 Patient Outreach [facility] [address] [place] [address] Queenie Valdovinos FNP Care Coordination (Outreach) 09/21/[address] [address] Hoa Hill NP Paranasal sinus disease (Primary Dx) 09/21/[address] [address] Hoa Hill NP 09/14/2024 Patient Outreach [facility] [address] [place] [address] Queenie Valdovinos FNP Care Coordination (Outreach) 09/11/2024 Telephone [facility] [address] [place] [address] Emilee Alvarenga MA Chart Prep 09/11/2024 Patient Outreach [facility] [address] [place] [address] Queenie Valdovinos FNP Care Coordination (Outreach) 09/10/[address] [address] Talia Jackman, RN NTTS 09/05/2024 Telephone [facility] [address] [place] [address] Queenie Valdovinos FNP Nurse Triage 09/05/2024 Patient Outreach [facility] [address] [place] [address] Queenie Valdovinos FNP 09/05/2024 Patient Outreach [facility] [address] [place] [address] Queenie Valdovinos FNP Care Coordination (Outreach) 08/21/2024 Telephone [facility] [address] [place] [address] [phone] Vaishali Davis MD MRI BRAIN ORDER from Last 3 Months Immunizations Name Administration Dates Next Due DTaP 04/18/2001, 8,1996,05/23,1996 HPV, Quadrivalent 02/13/2007,10/14/2006,08/16/19 07 Hep B, Unspecified 1996,1996, 996 HiB, unspecified 05/22/1997, 6,1996,03/21 IPV 04/18/2001, 8,1996,05/23,1996 Influenza injectable quadriv alent preservative free 05/30/2020,06/10/2018 Influenza, IIV3, injectable 04/27/2012, 7 Influenza, seasonal, injecta ble, preservative free 10/08/2024,06/05/2014 MMR 03/24/2000,05/22/1997 Meningococcal ACWY, unspecified 04/27/2012 Pfizer Covid-19 Vaccine 12+ 10/08/2024 Tdap 04/09/2020,03/06/2018,06/05/2014 Varicella 09/04/1997,05/22/1997 Family History Medical History Relation Name Comments Glaucoma Maternal Grandmother Breast cancer Neg Hx Colon cancer Neg Hx Ovarian cancer Neg Hx Relation Name Status Comments Maternal Grandmother Social History Tobacco Use Types Packs/Day Years Used Date Smoking Tobacco: Former Cigarettes Passive Smoke Exposure: Current Smokeless Tobacco: Current Tobacco Cessation:Ready to Q uit: Not Asked; Counseling Given: Not Answered Comments:Vapes 1% Alcohol Use Standard Drinks/Week Comments Never 0 (1 standard drink = 0.6 oz pur e alcohol) Depression Answer Date Recorded Patient Health Questionnaire-9 Score 13 11/04/2023 Patient Health Questionnaire-9 Score 13 11/04/2023 Last PHQ-9: Questionnaire Data Not on file 0 11/04/2023 Housing Stability Answer Date Recorded What is your housing situation today? I have sara hernandez 09/05/[address] you li ve. Do you have problems with any of the following? None of the above 09/05/2024 Food Insecurity Answer Date Recorded Within the past 12 months, y ou worried that your food would run out before you got money to buy more: Never True 09/05/2024 Within the past 12 months,th e food you bought just didn't last and you didn't have enough money to get more: Never True Transportation Answer Date Recorded In the past 12 months, has l ack of transportation kept you from medical appts, meetings, work or from getting things needed for daily living? Yes, it has kept me from medical appointments or getting medications. 09/05/2024 Utilities Answer Date Recorded In the past 12 months, has t he electric, gas, oil or water company threatened to shut off services in your home? No 09/05/2024 Depression Answer Date Recorded Patient Health Questionnaire-2 Score 3 11/04/2023 Internet Access Answer Date Recorded Internet Access Q1 Yes 09/05/2024 Internet Access Q2 Not on file 09/05/2024 Comments No Sex and Gender Information Value Date Recorded Sex Assigned at Female 06/07/2022 10:33 AM EDT Legal Sex Female 10:33 AM EDT Gender Identity Female 06/07/2022 10:33 AM EDT Sexual Orientation Something else 06/07/2022 10 :33 AM EDT Last Filed Vital Signs Vital Sign Reading Time Taken Comments Blood Pressure 120/70 11/13/2024 2:17 PM EDT Pulse 80 11/13/2024 2:17 PM EDT Temperature 36.4 ??C (97.6 ??F) 11/13/2024 2:17 PM ED T Respiratory Rate 16 11/13/2024 2:17 PM EDT Oxygen Saturation 98% 11/13/2024 2:17 PM EDT Inhaled Oxygen Concentration - - Weight 93.1 kg (205 lb 3.2 oz) 11/13/2024 2:17 P M EDT Height 170.2 cm (5' 7 ) 11/13/2024 2:17 PM EDT Body Mass Index 32.14 11/13/2024 2:17 PM EDT Plan of Treatment Upcoming Encounters Date Type Department Care Team (Late st Contact Info) Description 11/21/2024 3:00 PM EDT Office Visit [facility] DENTAL [address] [place], [place] [phone] Jose Miguel, Lilian [address] [place] [address] 03/28/2025 3:00 PM EDT Office Visit [facility] OPTOMETRY [address] [place] [address] Renu Story, OD [address] [place] [address] Health Maintenance Due Date Last Done Comments Pap Smear 02/05/2017 Depression Monitoring (PHQ-9) 05/06/2024 11/04/2023, 11/04/2023 Depression Screening 11/03/2024 11/04/2023, 11/04/19 SDOH Screening 09/05/2025 09/05/2024 Alcohol/Substance Use Screening 10/08/2025 10/08/2024 Family Planning (PISQ) 11/13/2025 11/13/2024 Tobacco Screening 11/13/2025 11/13/2024 Lipid Panel 10/28/2027 10/27/2022 DTaP/Tdap/Td Vaccines (9 [...] history exists HPV Vaccines Completed 02/13/2007, 04/2007, 08/16/2006 Meningococcal Vaccine Completed 04/27/2012 HIV Screening Completed 05/10/2024, 02/06, 10/27/2022, Additional history exists Hepatitis C Screening Completed 05/10/2024 , 02/28/2023, 10/27/2022, Additional history exists COVID-19 Vaccine Completed 10/08/2024, , 11/30/2020 Influenza Vaccine Completed 10/08/2024, , 06/10/2018, Additional history exists Hepatitis A Vaccines Aged Out No long er eligible based on patient's age to complete this topic Pneumococcal Vaccine: Pediatrics (0 to 5 Years) and At-Risk Patients (6 to 49) Years) Aged Out No longer eligible based on patient's age to complete this topic RSV under 20 months Aged Out No longe r eligible based on patient's age to complete this topic Rotavirus Vaccines Aged Out No longer eligible based on patient's age to complete this topic Procedures Procedure Name Priority Date/Time Associated Diagnosis Comments MR BRAIN W AND WO CONTRAST Routine 09/01/2024 5:09 PM EST Electrical shock sensation HEPATITIS C VIRAL RNA, QUANTITATIVE, REAL-TIME PCR Routine 05/10/2024 4:16 PM EDT control counseling HIV 1/2 ANTIGEN/ANTIBODY, FOURTH GENERATION W/RFL Routine 05/10/2024 4:16 PM EDT control counseling LIPID PANEL, STANDARD Routine 10/27/2022 12:25 PM EDT Routine health maintenance from Last 3 Months or Most Recently Relevant to Health Maintenance Results * Mr Brain w/ and w/o Contrast (09/01/2024 5:09 PM EST) Anatomical Region Laterality Modality Brain Magnetic Resonan ce 09/01/2024 5:09 PM EST Narrative 09/03/2024 3:48 PM EST ? [facility] ?[address] ?[place] [address] ? Magnetic Resonance Report ? Signed ? Patient: Gonzalez,Siria ?MR#: [id number] ?? 12 ? : 1995 ?Acct:[id number] ? Age/Sex: 29 / F ?ADM Date: 01/25/25 ? Loc: HO.MRI ? Attending Dr: Vaishali Davis MD ? Ordering Physician: Hoa Hill NP ?? Date of Service: 09/01/24 ?? Procedure(s): MR head/brain wo/w con ?? Accession Number(s): [id number] ? cc: Hoa Hill NP; Queenie Valdovinos ? EXAMINATION: ?? MR BRAIN /TRIGEMINAL PROTOCOL WITHOUT AND WITH CONTRAST ? CLINICAL INFORMATION: ?? Left facial pain. ? COMPARISON: ?? None available. ? TECHNIQUE: ?? Multiplanar, multisequence MRI of the brain/trigeminal protocol was ?? obtained before and after the intravenous administration of 8.5 mL ?? (Gadavist) without reported immediate complications. ? FINDINGS: ?? The Meckel's caves demonstrated no signal abnormality or enhancing ?? lesion. ?? Cisternal segments and entry zones of the trigeminal nerves demonstrate ?? no signal abnormality or enhancing mass. ?? No signal abnormality or enhancing mass at the foramen ovale or foramen ?? rotundum. ?? No enhancing mass in the perimesencephalic cisterns. ?? Flow-void signal within the main vessels is normal. ?? There is a right anterior inferior cerebellar artery type III pattern. ?? There is a left-sided anterior inferior cerebellar artery type II ?? pattern. ? The cochlear and vestibular components of the 8th cranial nerves ?? demonstrated no enhancing mass or signal abnormality. ? The main cerebral venous sinuses are patent. ? No restricted diffusion. ?? No acute intracranial hemorrhage, mass effect, midline shift, ?? hydrocephalus or herniation. ?? Sellar/suprasellar region demonstrated no enhancing lesion or masses. ?? The olfactory bulbs demonstrated no signal abnormality or enhancing ?? lesion. ?? No signal abnormality or enhancing lesion within the hippocampi. ?? Craniocervical junction is intact and normal. Aldrich-white matter ?? differentiation is normal. ?? Mucosal thickening, ethmoid air cells and left frontal sinus and left ?? frontal ethmoid recess. ?? No signal abnormality or enhancing lesion within the orbits. ?? Dextroconvex nasal septum configuration. ? MR/MR head/brain wo/w con ?? IMPRESSION: ?? No signal abnormality or enhancing lesion at the trigeminal nerves. ?? Mild paranasal sinus disease, more conspicuous on the left side. ? Electronically signed by: ??Hamilton Beckett MD ??09/03/2024 03:46 PM ?? EST RP ? Dictated By: ?Hamilton Del Rosario MD ? Signed By: ?<Electronically signed by Hamilton Jackman MD in OV> ? 09/03/24 1546 ? DD/ 1709 ? TD/TT: 09/01/24 1754 ? Factory Superintendent: ? Procedure Note Donotuseinterpreter, Image - 09/03/2024 [place] [address] Magnetic Resonance Report Signed Patient: Siria GonzalezMR#: [id number] 12 : 1995Acct:[id number] Age/Sex: Date: 09/01/24 Loc: HO.MRI Attending Dr: Vaishali Davis MD Ordering Physician: Hoa Hill NP Date of Service: 09/01/24 Procedure(s): MR head/brain wo/w con Accession Number(s): [id number] cc: Hoa Hill NP; Queenie Valdovinos MANAGER NURSING HOME EXAMINATION: MR BRAIN /TRIGEMINAL PROTOCOL WITHOUT AND WITH CONTRAST CLINICAL INFORMATION: Left facial pain. COMPARISON: None available. TECHNIQUE: Multiplanar, multisequence MRI of the brain/trigeminal protocol was obtained before and after the intravenous administration of 8.5 mL (Gadavist) without reported immediate complications. FINDINGS: The Meckel's caves demonstrated no signal abnormality or enhancing lesion. Cisternal segments and entry zones of the trigeminal nerves demonstrate no signal abnormality or enhancing mass. No signal abnormality or enhancing mass at the foramen ovale or foramen rotundum. No enhancing mass in the perimesencephalic cisterns. Flow-void signal within the main vessels is normal. There is a right anterior inferior cerebellar artery type III pattern. There is a left-sided anterior inferior cerebellar artery type II pattern. The cochlear and vestibular components of the 8th cranial nerves demonstrated no enhancing mass or signal abnormality. The main cerebral venous sinuses are patent. No restricted diffusion. No acute intracranial hemorrhage, mass effect, midline shift, hydrocephalus or herniation. Sellar/suprasellar region demonstrated no enhancing lesion or masses. The olfactory bulbs demonstrated no signal abnormality or enhancing lesion. No signal abnormality or enhancing lesion within the hippocampi. Craniocervical junction is intact and normal. Aldrich-white matter differentiation is normal. Mucosal thickening, ethmoid air cells and left frontal sinus and left frontal ethmoid recess. No signal abnormality or enhancing lesion within the orbits. Dextroconvex nasal septum configuration. MR/MR head/brain wo/w con IMPRESSION: No signal abnormality or enhancing lesion at the trigeminal nerves. Mild paranasal sinus disease, more conspicuous on the left side. Electronically signed by: Hamilton Beckett MD 09/03/2024 03:46 PM EST RP Dictated By: Hamilton Del Rosario MD Signed By: <Electronically signed by Hamilton Jackman MDin OV> 09/03/24 1546 DD/ 1709 TD/TT: 09/01/24 1754 Factory Superintendent: us Hoa Hill NP IMG MRI PROCEDURES Final Result * Hepatitis C Viral RNA, Quantitative, Real-Time PCR (05/10/2024 4:16 PM EDT) Hepatitis C Viral Load <15 NOT DETECTED NOT DETECTED IU/mL [facility] HCV Log PCR <1.18 NOT DETECTED NOT DETECTED Log IU/mL [facility] Comment:For additional infor martita, please refer tohttp://education.Sometrics.Buzzni/faq/TNW87k1(This link is being provided for informational/educational purposes only.)THIS TEST WAS PERFORMED AT:[facility] [place] [phone] SORIANO MD Blood 05/10/2024 4:16 PM EDT 05/10/2024 5:19 PM EDT us Queenie Valdovinos MANAGER NURSING HOME LAB BLOOD ORDERABLES Final Res ult [facility] [address] [place] [phone] * HIV-1/2 Antigen and Antibodies, Fourth Generation, with Reflexes (05/10/2024 4:16 PM EDT) HIV AB/AG Nonreactive Nonreactive [facility] Comment:HIV-1 p24 Ag and/or HIV-1/HIV-2 Ab not detected.A test result that is nonreactive does not exclude thepossibility of exposure to or infection with HIV-1 and/orHIV-2. Nonreactive results in this assay for individualswith prior exposure to HIV-1 and/or HIV-2 may be due toantigen and antibody levels that are below the limit ofdetection of this assay.The [email or web address] HIV Ag/Ab Combo assay result andsupplemental assay results should be interpreted inconjunction with the patient's clinical presentation,history and other laboratory results. If the results areinconsistent with clinical evidence, additional testing issuggested to confirm the result. Blood Venous blood specimen / Unknown 05/10/2024 4:16 PM EDT 05/10/2024 5:19 PM EDT us Queenie Valdovinos [facility] BLOOD ORDERABLES Final Res ult [facility] [address] [place] [phone] * (ABNORMAL) Lipid Panel, Standard (10/27/2022 12:25 PM EDT) [facility] Cholesterol, Total 131 <200 mg/dL [facility] [place] [facility] HDL Cholesterol 42(L) > OR = 50 mg/dL [facility] [place] [facility] Triglycerides 73 <150 mg/dL [facility] [place] [facility] LDL Cholesterol 74 mg/dL (calc) [facility] [place] [facility] Comment: Reference range: <100 Desirable range <100 mg/dL for primary prevention; ?? <70 mg/dL for patients with CHD or diabetic patients with > or = 2 CHD risk factors. LDL-C is now calculated using the Eulogio calculation, which is a validated novel method providing better accuracy than the Friedewald equation in the estimation of LDL-C. Edwin CORDOVA et al. BETSY. 2013;310(19): 2652-5019 (http://education.e-Go aeroplanes.Buzzni/faq/RUI976) Chol/HDLC Ratio 3.1 <5.0 (calc) [facility] [place] [facility] Non-HDL Cholesterol 89 <130 mg/dL (calc) [facility] [place] [facility] Comment: For patients with diabetes plus 1 major ASCVD risk factor, treating to a non-HDL-C goal of <100 mg/dL (LDL-C of <70 mg/dL) is considered a therapeutic option. Blood Venous blood specimen / Unknown 10/27/2022 12:25 PM EDT 10/27/2022 12:28 PM EDT Queenie Valdovinos [facility] BLOOD ORDERABLES Final Res ult [facility] [address], [place] [address] [facility] [place] [facility] [address] [place] [phone] from Last 3 Months or Most Recently Relevant to Health Maintenance Insurance [facility] C3 DENTAL-[facility] MEDICAID STAND ADULT Care Teams Sql Server Bi Developer Relationship Specialty Start Date End Date Queenie Valdovinos FNP [address] [place] [phone] PCP - General Family Medicine 04/07/22
--- OUTSIDE RECORDS SUMMARY | 2024-11-13 19:15 | XMS_ITS | Encounter Summary ---
Author Organization [employer] Address [address] [place] [address] Care Team Providers Care [employer] Business Manager Name Role Phone Queenie Valdovinos Primary Care Provider [phone] Reason for Visit * Reason Onset Date Comments Referral 08/07/2024 Encounter Details Date Type Department Care Team ([facility] st Contact Info) Description 08/07/2024 Telephone [facility] MEDICINE [address] [place] [address] Queenie Valdovinos FNP [address] [place], [place] [phone] Referral Social History Tobacco Use Types Packs/Day [...] with others, in a hotel, in a nursing home, living outside on the street, on [...] Description 11/21/2024 3:00 PM EDT Office Visit [facility] DENTAL [address] [place] [address] Lilian Gillespie [address] [place], [place] [phone] 03/28/2025 3:00 PM EDT Office Visit [facility] OPTOMETRY [address] [place], [place] [phone] Renu Story, TRAV [address] [place] [address] documented as of this encounter Visit Diagnoses Not on filedocumented in this encounter Additional Health Concerns Assessment Noted Time PHQ-9 Depression Total Score: 13 024 3:52 PM EDT documented as of this encounter Care Teams [employer] Business Manager Relationship Specialty Start Date End Date Queenie Valdovinos FNP [address] [place] [address] PCP - General Family Medicine 04/07/22 documented as of this encounter
--- OUTSIDE RECORDS SUMMARY | 2024-11-13 19:15 | XMS_ITS | Encounter Summary ---
Author Organization [employer] Address [address] [place] [address] Care Team Providers Care News Commentator Name Role Phone DeepthiLeyda garcia ARSHAD Primary Care Provider [phone] Reason for Referral * Imaging (Urgent) - Authorized Specialty Diagnoses / Procedures Referred By Contac t Referred To Contact Radiology Diagnoses Menorrhagia with regular cycle Procedures Us Pelvis complete Simi Thomas CNM [address] [place] [address] Phone: tel: fax: [address] Phone: tel: fax: Referral ID Status Reason Start Date Expiration Date V isits Requested Visits Authorized [id number] Authorized 11/13/2024 11/13/2025 1 1 * Imaging (Urgent) - Authorized Specialty Diagnoses / Procedures Referred By Contac t Referred To Contact Radiology Diagnoses Menorrhagia with regular cycle Procedures US Pelvis Transvaginal Simi Thomas CNM [address] [place] [address] Phone: tel: fax: [address] Phone: tel: fax: Referral ID Status Reason Start Date Expiration Date V isits Requested Visits Authorized [id number] Authorized 11/13/2024 11/13/2025 1 1 Reason for Visit * Reason Comments Gynecologic Exam Encounter Details Date Type Department Care Team (Latest Contact Info) Description 11/13/2024 2:15 PM EDT Procedure Visit [facility] [address], [place] [phone] Simi Thomas CNM [address], [place] [phone] Menorrhagia with regular cycle (Primary Dx); Cervical cancer screening; Family planning counseling; Attention deficit hyperactivity disorder (ADHD), unspecified ADHD type; Anxiety Social History Tobacco Use Types Packs/Day Years [...] is your housing situation today? I have sarafrancisca hernandez 09/05/[address] you [...] Mass Index 32.14 11/13/2024 2:17 PM EDT documented in this encounter Progress Notes * Simi Thomas CNM - 11/13/2024 2:15 PM EDT Subjective Patient ID: Siria Gonzalez is a 29 y.o. female who presents for pap Here for pap. Last pap during 4 years ago. Has Slynd progestin only pill rx that she takes if she is going to be sexually active with AMAB partner. Uses condoms with oral contraceptive pill. Happy with method, not planning in the next year. Aware of reduced efficacy of progestin only pill with Tegretol. No new partners since last STI testing. Heavy, painful menses since menarche. Occasional easy bruising and bleeding gums. Mom and sister have heavy periods as well. Monthly menses x 6-7d, uses 5+ overnight pads/day. Notes some irregular bleeding if she takes Slynd. Gonorrhea/Chlamydia, HIV, syphilis, Hep C negative 05/2024. No new partners since this testing. Received HPV and HBV vaccine series. Review of Systems HENT: Negative for nosebleeds. Genitourinary: Positive for menstrual problem. Negative for dyspareunia, dysuria, frequency, genital sores, hematuria, pelvic pain, urgency, vaginal bleeding, vaginal discharge and vaginal pain. No abnormal pap, no abnormal bleeding, no breast pain, no breast mass, no nipple discharge Hematological: Bruises/bleeds easily. Objective BP 120/70 (BP Location: Left arm, Patient Position: Sitting, BP Cuff Size: Large adult) Pulse 80 Temp 97.6 ??F (36.4 ??C) (Temporal) Resp 16 Ht 5' 7 (1.702 m) Wt 205 lb 3.2 oz (93.1 kg) LMP 10/27/2024 (Approximate) SpO2 98% BMI 32.14 kg/m?? Physical Exam Constitutional: Appearance: Normal appearance. Chest: Breasts: Right: Normal. No swelling, bleeding, inverted nipple, mass, nipple discharge, skin change or tenderness. Left: Normal. No swelling, bleeding, inverted nipple, mass, nipple discharge, skin change or tenderness. Genitourinary: General: Normal vulva. Labia: Right: No rash, tenderness, lesion or injury. Left: No rash, tenderness, lesion or injury. Vagina: Normal. No signs of injury and foreign body. No vaginal discharge, erythema, tenderness, bleeding or lesions. Cervix: No cervical motion tenderness, discharge, friability, lesion, erythema, cervical bleeding or eversion. Uterus: Normal. Not enlarged and not tender. Adnexa: Right adnexa normal and left adnexa normal. Right: No mass, tenderness or fullness. Left: No mass, tenderness or fullness. Lymphadenopathy: Upper Body: Right upper body: No supraclavicular or axillary adenopathy. Left upper body: No supraclavicular or axillary adenopathy. Neurological: Mental Status: She is alert. Psychiatric: Mood and Affect: Mood normal. Behavior: Behavior normal. Assessment/Plan Diagnoses and all orders for this visit: Menorrhagia with regular cycle - CBC; Future - von Willebrand Disease Panel without Collagen Binding Assay (CBA); Future - Prothrombin Time-INR; Future - Partial Thromboplastin Time, Activated (APTT); Future - US Pelvis Transvaginal; Future - Us Pelvis complete; Future - TSH W/Reflex to FT4; Future Normal TSH, hemoglobin/hematocrit, platelets and iron studies 2022. Will rule out bleeding disorderand structural issues, recheck TSH as precaution. Trial NSAIDS during menses (take with food, as directed). If not helpful, could consider tranexamic acid. Could also consider progestin IUD. Cervical cancer screening - Pap Smear Pap today. Repeat 3 y if normal. Will contact with results. Family planning counseling Happy with condoms plus progestin only pill. Aware of reduced efficacy of oral contraceptive pill with Tegretol. Advised to use condoms with oral contraceptive pill. EC sent in for future use if needed, although efficacy with this is also compromised with Tegretol (xena more so that Plan B, but both still less effective). Report missed menses. Condoms given. Let me know if interested in another method or thinking about getting . Other orders - levonorgestrel (Plan B) 1.5 MG tablet; Take 1 tablet (1.5 mg) by mouth 1 (one) time for 1 dose. Take up to 3 days after sex as needed - ibuprofen (IBU) 800 MG tablet; 1 tablet every 8 hours with food during menses, up to 7 days. documented in this encounter Miscellaneous Notes * Addendum Note - RASHAD Thompson - 11/13/2024 2:15 PM EDTAddended by: LEYDA DAIGLE on: 11/13/2024 04:30 PM Modules accepted: Orders documented in this encounter Plan of Treatment Upcoming Encounters Date Type Department Care Team (Late st Contact Info) Description 11/21/2024 3:00 PM EDT Office Visit [facility] [address] [place] [address] [phone] Lilian Gillespie [address] [place] [address] [phone] 03/28/2025 3:00 PM EDT Office Visit [facility] [address] [place] [address] Renu Story, OD [address] [place] [address] Scheduled Orders Name Type Priority Associated Diagnoses Order Schedule Pap Smear Pathology and Cytology Routine Cervical cancer screening Ordered: 11/13/2024 CBC Lab Routine Menorrhagia with regular cycle Expected: 11/13/2024 (Approximate), Expires: 11/13/2025 von Willebrand Disease Panel without Collagen Binding Assay (CBA) Lab Routine Menorrhagia with regular cycle Expected: 11/13/2024 (Approximate), Expires: 11/13/2025 Prothrombin Time-INR Lab Routine Menorrhagia with regular cycle Expected: 11/13/2024, Expires: 11/13/2025 Partial Thromboplastin Time, Activated (APTT) Lab Routine Menorrhagia with regular cycle Expected: 11/13/2024, Expires: 11/13/2025 US Pelvis Transvaginal Imaging Urgent Menorrhagia with regular cycle Expected: 11/13/2024, Expires: 11/13/2025 Us Pelvis complete Imaging Urgent Menorrhagia with regular cycle Expected: 11/13/2024, Expires: 11/13/2025 TSH W/Reflex to FT4 Lab Routine Menorrhagia with regular cycle Expected: 11/13/2024 (Approximate), Expires: 11/13/2025 documented as of this encounter Visit Diagnoses Diagnosis Menorrhagia with regular cycle- Primary Cervical cancer screening Screening for malignant neoplasm of the cervix Family planning counseling Other general counseling and advice for contraceptive management Attention deficit hyperactivity disorder (ADHD), unspecified ADHD type Anxiety Anxiety state, unspecified documented in this encounter Additional Health Concerns Assessment Noted Time PHQ-9 Depression Total Score: 13 11/03/ 024 3:52 PM EDT documented as of this encounter Care Teams News Commentator Relationship Specialty Start Date End Date Leyda Daigle FNP [address] [place] [address] PCP - General Family Medicine 04/07/22 documented as of this encounter
--- OUTSIDE RECORDS SUMMARY | 2024-11-13 19:15 | XMS_ITS | Encounter Summary ---
Author Organization [employer] Address [address] [place] [address] Care Team Providers Care Galley Cook Name Role Phone Queenie Valdovinos SENIOR COMMISSIONS ANALYST Primary Care Provider [phone] Encounter Details Date Type Department Care Team (Latest Contact Info) Description 11/13/2024 Travel Social History Tobacco Use Types Packs/Day Years Used Date Smoking Tobacco: Former Cigarettes Passive Smoke Exposure: Current Smokeless Tobacco: Current Comments:Vapes 1% Alcohol Use Standard Drinks/Week Comments [...] Description 11/21/2024 3:00 PM EDT Office Visit [facility] [address] [place], [place] [phone] Lilian Gillespie [address] [place], [place] [phone] 03/28/2025 3:00 PM EDT Office Visit [facility] [address] [place], [place] [phone] Renu Story, OD [address] [place] [address] documented as of this encounter Visit Diagnoses Not on filedocumented in this encounter Additional Health Concerns Assessment Noted Time PHQ-9 Depression Total Score: 13 024 3:52 PM EDT documented as of this encounter Care Teams Galley Cook Relationship Specialty Start Date End Date Queenie Valdovinos FNP [address] [place] [address] PCP - General Family Medicine 04/07/22 documented as of this encounter
== END 2024-11-13 17:07 | disposition home or self-care (01) ==
LOC: HO.HHCLNP 17:06
PROVIDERS: Visit Provider Advanced Practice Midwife
DX: Z12.4 Encounter for screening for malignant neoplasm of cervix (principal)
CPT/HCPCS: 88175

== ENCOUNTER 2024-11-15 12:04 | Outpatient (REF) | payer MEDICAID, SELFPAY ==
[2024-11-15 12:45] LABS: Hematocrit 43.6 % (37.0-47.0); Hemoglobin 14.5 g/dl (12.0-16.0); Mean Corpuscular HGB Conc 33.3 g/dl (31.0-35.0); Mean Corpuscular Hemoglobin 28.6 pg (27.0-33.0); Mean Platelet Volume 9.5 fL (9.4-12.3); Platelet Count 222 X10*3/uL (160-400); Red Blood Count 5.07 X10*6/uL (4.20-5.50); Red Cell Distribution Width 13.4 % (11.0-16.0); White Blood Count 10.3 X10*3/uL (4.8-10.8)
[2024-11-15 12:51] LABS: INTERNATIONAL NORM RATIO 1.1 (0.9-1.1); Prothrombin Time 12.4 SEC (10.9-12.4)
[2024-11-15 13:44] LABS: TSH reflex Free T4 1.45 uIU/mL (0.32-4.0)
--- OUTSIDE RECORDS SUMMARY | 2024-11-15 14:43 | XMS_ITS | Clinical Summary ---
Author Organization [employer] Address [address] [place] [address] Care Team Providers Care Sr Solutions Consultant Name Role Phone Queenie Valdovinos RASHAD Primary Care Provider [phone] Allergies Active Allergy Reactions Criticality Noted Date [...] cap. 16 g 1 09/21/19 25 Active ibuprofen (IBU) 800 MG tablet 1 [...] eorder (will not trigger notification to Pharmacy)) levonorgestrel (Plan B) 1.5 MG tablet Take 1 tablet (1.5 mg) by mouth 1 (one) time for 1 dose. Take up to 3 days after sex as needed 1 tablet 11 04/03/27 Active Problems Problem Noted Date Diagnosed Date [...] 05/28/24 Dysmenorrhea 04/29/2024 Overview (04/29/2024): Following with [facility] CANNERY TENDER ENGINEER (consult Jun 2023) Assessment & Plan (05/28/2024 9:39 PM EDT): -Initiated on POP Slynd on 04/27/24. 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 -Referral to [facility] sent 10/08/24 Assessment & Plan (02/26/2023 10:45 AM EDT): Contact info for [facility] provided Anxiety 03/10/2020 Overview (06/18/2023): ?? Established with therapist Catrachita through [facility] (on wait list for psychiatrist through [facility]) ?? Cont fluoxetine 40mg daily ?? [...] Description 11/13/2024 2:15 PM EDT Procedure Visit [facility] [address] [place] [phone] Simi Thomas CNM Menorrhagia with regular cycle (Primary Dx); Cervical cancer screening; Family planning counseling; Attention deficit hyperactivity disorder (ADHD), unspecified ADHD type; Anxiety 11/13/2024 Travel 11/01/2024 Patient Outreach [facility] [address] [place] [address] Queenie Valdovinos FNP Care Coordination (Outreach) 10/19/2024 Population Health Risk Score [facility] [address] [phone] Provider, Population Health Generic 10/19/2024 Patient Outreach [facility] [address] [place] [address] Queenie Valdovinos FNP Care Coordination (Outreach) 10/08/2024 10:15 AM EST Office Visit [facility] [address] [place] [address] Queenie Valdovinos FNP Electrical shock sensation (Primary Dx); Encounter for immunization 10/08/2024 Travel 10/05/2024 Telephone [facility] [address] [place] [address] Emilee Alvarenga MA Chart Prep 10/03/2024 Patient Outreach [facility] [address] [place] [address] Queenie Valdovinos FNP Care Coordination (Outreach) 09/26/2024 Patient Outreach [facility] [address] [place] [address] Queenie Valdovinos FNP Care Coordination (Outreach) 09/21/2024 Refill [facility] [address] [place] [phone] Hoa Hill NP Paranasal sinus disease (Primary Dx) 09/21/[address] [address] Hoa Hill NP 09/14/2024 Patient Outreach [facility] [address] [place] [address] Queenie Valdovinos FNP Care Coordination (Outreach) 09/11/2024 Telephone [facility] [address] [place] [address] Emilee Alvarenga MA Chart Prep 09/11/2024 Patient Outreach [facility] [address] [place] [address] Queenie Valdovinos FNP Care Coordination (Outreach) 09/10/[address] [address] Talia Jackman, RN NTTS 09/05/2024 Telephone [facility] [address] [place] [address] Queenie Valdovinos FNP Nurse Triage 09/05/2024 Patient Outreach [facility] [address] [place] [address] Queenie Valdovinos FNP 09/05/2024 Patient Outreach [facility] [address] [place] [address] Queenie Valdovinos FNP Care Coordination (Outreach) 08/21/2024 Telephone [facility] [address] [place] [address] [phone] Vaishali Davis MD MRI BRAIN ORDER from [...] Description 11/21/2024 3:00 PM EDT Office Visit [facility] [address] [place], [place] [phone] Lilian Gillespie [address] [place] [address] 03/28/2025 3:00 PM EDT Office Visit [facility] [address] [place] [address] Renu Story, OD [address] [place] [address] Health Maintenance Due Date Last Done Comments Dental Oral Exam 1996 Dental Prophylaxis 1996 Dental X-Ray: Bitewings 1996 Dental X-Ray: Full Mouth 1996 Pap Smear 02/05/2017 Depression Monitoring 05/06/2024 11/04/2023, 024 Depression Screening 11/03/2024 11/04/2023, 11/04/19 24 SDOH Screening 09/05/2025 09/05/2024 Alcohol/Substance Use Screening [...] Procedure Name Priority Date/Time Associated Diagnosis Comments TSH W/REFLEX TO FT4 Routine 11/15/2024 1 2:34 PM EDT Menorrhagia with regular cycle APTT Routine 11/15/2024 12:34 PM EDT Menorrhagia with regular cycle PROTHROMBIN TIME-INR Routine 11/15/2024 12:34 PM EDT Menorrhagia with regular cycle CBC Routine 11/15/2024 12:34 PM EDT Menorrhagia with regular cycle MR BRAIN W AND WO CONTRAST Routine [...] Recently Relevant to Health Maintenance Results * TSH W/Reflex to FT4 (11/15/2024 12:34 PM EDT) TSH reflex Free T4 1.45 0.32 - 4.0 uIU/mL [facility] Blood Venous blood specimen / Unknown 11/15/2024 12:34 PM EDT 11/15/2024 12:35 PM EDT [facility] LAB BLOOD ORDERABLES Amarilys l Result Performing Organization Address [facility]/ZIP Co de Phone Number [facility] [address] [place] [phone] * Partial Thromboplastin Time, Activated (APTT) (11/15/2024 12:34 PM EDT) Partial Thromboplastin Time 35.0 26.0 - 36.8 SEC [facility] Comment:For information rega rding the monitoring of direct thrombininhibitors, please refer to Pharmacy. Blood Venous blood specimen / Unknown 11/15/2024 12:34 PM EDT 11/15/2024 12:35 PM EDT [facility] LAB BLOOD ORDERABLES Amarilys l Result Performing Organization Address [facility] Co de Phone Number [facility] [address] [place] [phone] * Prothrombin Time-INR (11/15/2024 12:34 PM EDT) Prothrombin Time 12.4 10.9 - 12.4 SEC [facility] INTERNATIONAL NORM RATIO 1.1 0.9 - 1.1 [facility] Comment:INTERNATIONAL NORMAL IZED RATIO (INR) REFERENCE RANGES Reference RangeFor patients not on anticoagulant therapy: 0.9 - 1.1INR ranges for oral anticoagulanttherapy:For prevention and treatment of venous thrombosis and pulmonary embolism: 2.0 - 3.0For acute myocardial infarction with aspirin therapy: 2.0 - 3.0For acute myocardial infarction without aspirin therapy: 3.0 - 4.0For patients with mechanical prosthetic heart valves: 2.5 - 3.5 Blood Venous blood specimen / Unknown 11/15/2024 12:34 PM EDT 11/15/2024 12:35 PM EDT Simi Thomas [facility] LAB BLOOD ORDERABLES Amarilys l Result [facility] [address] [place] [phone] * CBC (11/15/2024 12:34 PM EDT) White Blood Count 10.3 4.8 - 10.8 X10*3/uL [facility] Red Blood Count 5.07 4.20 - 5.50 X10*6/uL [facility] Hemoglobin 14.5 12.0 - 16.0 g/dl [facility] Hematocrit 43.6 37.0 - 47.0 % [facility] Mean Corpuscular Volume 86.0 80.0 - 98.0 fL [facility] Mean Corpuscular Hemoglobin 28.6 27.0 - 33.0 pg [facility] Mean Corpuscular HGB Conc 33.3 31.0 - 35.0 g/dl [facility] Red Cell Distribution Width 13.4 11.0 - 16.0 % [facility] Platelet Count 222 160 - 400 X10*3/uL [facility] Mean Platelet Volume 9.5 9.4 - 12.3 fL [facility] NRBC Pct Auto 0.0 0.0 - 0.2 /100WBC [facility] NRBC Abs Auto 0.000 0.0 - 0.012 X10*3/uL [facility] Blood Venous blood specimen / Unknown 11/15/2024 12:34 PM EDT 11/15/2024 12:35 PM EDT Simi Thomas CNM LAB BLOOD ORDERABLES Amarilys l Result [facility] [address] [place] [phone] * Mr Brain w/ and w/o Contrast (09/01/2024 5:09 PM EST) Anatomical Region Laterality Modality Brain Magnetic Resonan ce 09/01/2024 5:09 PM EST Narrative 09/03/2024 3:48 PM EST ? [facility] ?[address] ?[place] [address] ? Magnetic Resonance Report ? Signed ? Patient: Gonzalez,Siria ?MR#: [id number] ?? 12 ? : 1995 ?Acct:[id number] ? Age/Sex: 29 / F ?ADM Date: 09/01/24 ? Loc: HO.MRI ? Attending Dr: Vaishali Davis MD ? Ordering Physician: Hoa Hill NP ?? Date of Service: 09/01/24 ?? Procedure(s): MR head/brain wo/w con ?? Accession Number(s): [id number] ? cc: Hoa Hill NP; Queenie Valdovinos [...] Beckett MD ??09/03/2024 03:46 PM ?? EST ? Dictated By: ?Hamilton Del Rosario MD ? Signed By: ?<Electronically signed by Hamilton Jackman MD in OV> ? 09/03/24 1546 ? DD/ 1709 ? TD/TT: 09/01/24 1754 ? Abstract Searcher: ? Procedure Note Willardlobitonaborlorna, Image - 09/03/2024 [place] [address] Magnetic Resonance Report Signed Patient: Siria GonzalezMR#: [id number] 12 : 1995Acct:[id number] Age/Sex: 29 / FADM Date: 09/01/24 Loc: HO.MRI Attending Dr: Vaishali Davis MD Ordering Physician: Hoa Hill NP Date of Service: 09/01/24 Procedure(s): MR head/brain wo/w con Accession Number(s): [id number] cc: Hoa Hill NP; Queenie Valdovinos FAMILY PRACTICE NURSE PRACTITIONER EXAMINATION: MR BRAIN /TRIGEMINAL PROTOCOL WITHOUT AND [...] by: Hamilton Beckett MD 09/03/2024 03:46 PM [facility] Dictated By: Hamilton Del Rosario MD Signed By: <Electronically signed by Hamilton Jackman MDin OV> 09/03/24 1546 DD/ 1709 TD/TT: 09/01/24 9418 Abstract Searcher: Hoa Hill NP [facility] [place] PROCEDURES Final Result * Hepatitis C Viral RNA, Quantitative, Real-Time PCR (05/10/2024 4:16 PM EDT) Hepatitis C Viral Load <15 NOT DETECTED NOT DETECTED IU/mL [facility] HCV Log PCR <1.18 NOT DETECTED NOT DETECTED Log IU/mL [facility] Comment:For additional infor martita, please refer tohttp://education.[employer]/faq/DYK20n6(This link is being provided for informational/educational purposes only.)THIS TEST WAS PERFORMED AT:[facility] [place] [phone] SORIANO MD Blood 05/10/2024 4:16 PM EDT 05/10/2024 5:19 PM EDT Queenie Valdovinos FAMILY PRACTICE NURSE PRACTITIONER LAB BLOOD ORDERABLES Final Res ult Performing Organization Address [facility] Co de Phone Number [facility] [address] [place] [phone] * HIV-1/2 Antigen and Antibodies, Fourth Generation, with Reflexes (05/10/2024 4:16 PM EDT) HIV AB/AG Nonreactive Nonreactive [facility] Comment:HIV-1 p24 Ag and/or HIV-1/HIV-2 Ab not detected.A test result that is nonreactive does not exclude thepossibility of exposure to or infection with HIV-1 and/orHIV-2. Nonreactive results in this assay for individualswith prior exposure to HIV-1 and/or HIV-2 may be due toantigen and antibody levels that are below the limit ofdetection of this assay.The [employer] HIV Ag/Ab Combo assay result andsupplemental assay results should be interpreted inconjunction with the patient's clinical presentation,history and other laboratory results. If the results areinconsistent with clinical evidence, additional testing issuggested to confirm the result. Blood Venous blood specimen / Unknown 05/10/2024 4:16 PM EDT 05/10/2024 5:19 PM EDT us Queenie Valdovinos FAMILY PRACTICE NURSE PRACTITIONER LAB BLOOD ORDERABLES Final Res ult Performing Organization Address [facility]/ZIP Co de Phone Number [facility] [address] [place] [phone] * (ABNORMAL) Lipid Panel, Standard (10/27/2022 12:25 PM EDT) Cholesterol, Total 131 <200 mg/dL [facility] [employer] [place] [facility] HDL Cholesterol 42(L) > OR = 50 mg/dL [facility] [place] [facility] Triglycerides 73 <150 mg/dL [facility] [place] [facility] LDL Cholesterol 74 mg/dL (calc) [facility] Comment: Reference range: <100 Desirable range <100 mg/dL for primary prevention; ?? <70 mg/dL for patients with CHD or diabetic patients with > or = 2 CHD risk factors. LDL-C is now calculated using the Eulogio calculation, which is a validated novel method providing better accuracy than the Friedewald equation in the estimation of LDL-C. Edwin CORDOVA et al. BETSY. 2013;310(19): 2017-0247 (http://education.[employer]/faq/VZH362) Chol/HDLC Ratio 3.1 <5.0 (calc) [facility] [place] [facility] Non-HDL Cholesterol 89 <130 mg/dL (calc) [facility] [place] [facility] Comment: For patients with diabetes plus 1 major ASCVD risk factor, treating to a non-HDL-C goal of <100 mg/dL (LDL-C of <70 mg/dL) is considered a therapeutic option. Blood Venous blood specimen / Unknown 10/27/2022 12:25 PM EDT 10/27/2022 12:28 PM EDT us Queenie Valdovinos FAMILY PRACTICE NURSE PRACTITIONER LAB BLOOD ORDERABLES Final Res ult [facility] [address], [place] [address] [facility] [address] [place] [phone] from Last 3 Months or Most Recently Relevant to Health Maintenance Insurance [place] [facility] AD[facility] Care Teams Sr Solutions Consultant Relationship Specialty Start Date End Date Queenie Valdovinos FNP [address] [place] [phone] PCP - General Family Medicine 04/07/22
--- OUTSIDE RECORDS SUMMARY | 2024-11-15 14:43 | XMS_ITS | Encounter Summary ---
Author Organization [employer] Address [address] [place] [address] Care Team Providers Care Fiberglass Bonding Machine Tender Name Role Phone DeepthiLeyda garcia RASHAD Primary Care Provider [phone] Reason for Referral * Imaging (Urgent) - Authorized Specialty Diagnoses / Procedures Referred By Contac t Referred To Contact Radiology Diagnoses Menorrhagia with regular cycle Procedures Us Pelvis complete Simi Thomas CNM [address] [place] [address] Phone: tel: fax: [address] Phone: tel: fax: Referral ID Status Reason Start Date Expiration Date V isits Requested Visits Authorized [id number] Authorized 11/13/2024 11/13/2025 1 1 * Imaging (Urgent) - Authorized Specialty Diagnoses / Procedures Referred By Contac t Referred To Contact Radiology Diagnoses Menorrhagia with regular cycle Procedures US Pelvis Transvaginal Simi Thomas CNM [address] [place] [address] Phone: tel: fax: [address] Phone: tel: fax: Referral ID Status Reason Start Date Expiration Date V isits Requested Visits Authorized [id number] Authorized 11/13/2024 11/13/2025 1 1 Reason for Visit * Reason Comments Gynecologic Exam Encounter Details Date Type Department Care Team (Latest Contact Info) Description 11/13/2024 2:15 PM EDT Procedure Visit [facility] [address] [place], [place] [phone] Simi Thomas CNM [address] [place], [place] [phone] Menorrhagia with regular cycle (Primary Dx); Cervical [...] Description 11/21/2024 3:00 PM EDT Office Visit [facility] D[facility]AL [address] [place] [address] [phone] Lilian Gillespie [address] [place] [address] [phone] 03/28/2025 3:00 PM EDT Office Visit [facility] [address] [place] [address] Angellateresa Renu, OD [address] [place] [address] Scheduled Orders Name Type Priority Associated Diagnoses Order Schedule Pap Smear Pathology and Cytology Routine Cervical cancer screening Ordered: 11/13/2024 von Willebrand Disease Panel without Collagen Binding Assay (CBA) Lab Routine Menorrhagia with regular cycle Expected: 11/13/2024 (Approximate), Expires: 11/13/2025 US Pelvis Transvaginal Imaging Urgent Menorrhagia with regular cycle Expected: 11/13/2024, Expires: 11/13/2025 Us Pelvis complete Imaging Urgent Menorrhagia with regular cycle Expected: 11/13/2024, Expires: 11/13/2025 documented as of this encounter Procedures Procedure Name Priority Date/Time Associated Diagnosis Comments TSH W/REFLEX TO FT4 Routine 11/15/2024 1 2:34 PM EDT Menorrhagia with regular cycle APTT Routine 11/15/2024 12:34 PM EDT Menorrhagia with regular cycle PROTHROMBIN TIME-INR Routine 11/15/2024 12:34 PM EDT Menorrhagia with regular cycle CBC Routine 11/15/2024 12:34 PM EDT Menorrhagia with regular cycle documented in this encounter Results * TSH W/Reflex to FT4 (11/15/2024 12:34 PM EDT) TSH reflex Free T4 1.45 0.32 - 4.0 uIU/mL [facility] Blood Venous blood specimen / Unknown 11/15/2024 12:34 PM EDT 11/15/2024 12:35 PM EDT us Simi Thomas CNM LAB BLOOD ORDERABLES Amarilys gilliland Result [facility] [address] [place] [phone] * Partial Thromboplastin Time, Activated (APTT) (11/15/2024 12:34 PM EDT) Partial Thromboplastin Time 35.0 26.0 - 36.8 SEC [facility] Comment:For information rega rding the monitoring of direct thrombininhibitors, please refer to Pharmacy. Blood Venous blood specimen / Unknown 11/15/2024 12:34 PM EDT 11/15/2024 12:35 PM EDT Simi Thomas [facility] LAB BLOOD ORDERABLES Amarilys l Result Performing Organization Address [facility]/ZIP Co de Phone Number [facility] [address] [place] [phone] * Prothrombin Time-INR (11/15/2024 12:34 PM EDT) Prothrombin Time 12.4 10.9 - 12.4 SEC [facility] INTERNATIONAL NORM RATIO 1.1 0.9 - 1.1 [facility] Comment:INTERNATIONAL NORMAL IZED RATIO (INR) REFERENCE [...] 12:34 PM EDT 11/15/2024 12:35 PM EDT [facility] ORDERAB[facility] Amarilys l Result Performing Organization Address [facility]/ZIP Co de Phone Number [facility] [address] [place] [phone] * CBC (11/15/2024 12:34 PM EDT) White Blood Count 10.3 4.8 - 10.8 X10*3/uL [facility] Red Blood Count 5.07 4.20 - 5.50 X10*6/uL [facility] Hemoglobin 14.5 12.0 - 16.0 g/dl [facility] Hematocrit 43.6 37.0 - 47.0 % [facility] Mean Corpuscular Volume 86.0 80.0 - 98.0 fL [facility] Mean Corpuscular Hemoglobin 28.6 27.0 - 33.0 pg [facility] Mean Corpuscular HGB Conc 33.3 31.0 - 35.0 g/dl [facility] Red Cell Distribution Width 13.4 11.0 - 16.0 % [facility] Platelet Count 222 160 - 400 X10*3/uL [facility] Mean Platelet Volume 9.5 9.4 - 12.3 fL [facility] NRBC Pct Auto 0.0 0.0 - 0.2 /100WBC [facility] NRBC Abs Auto 0.000 0.0 - 0.012 X10*3/uL [facility] Blood Venous blood specimen / Unknown 11/15/2024 12:34 PM EDT 11/15/2024 12:35 PM EDT us Simi KING LAB BLOOD ORDERABLES Amarilys l Result [facility] [address] [place] [phone] documented in this encounter Visit Diagnoses Diagnosis Menorrhagia with regular cycle- Primary Cervical cancer screening Screening for malignant neoplasm of the cervix Family planning counseling Other general counseling and advice for contraceptive management Attention deficit hyperactivity disorder (ADHD), unspecified ADHD type Anxiety Anxiety state, unspecified documented in this encounter Additional Health Concerns Assessment Noted Time PHQ-9 Depression Total Score: 13 11/03/2 024 3:52 PM EDT documented as of this encounter Care Teams Fiberglass Bonding Machine Tender Relationship Specialty Start Date End Date Leyda Daigle FNP [address] [place] [address] PCP - General Family Medicine 04/07/22 documented as of this encounter
--- OUTSIDE RECORDS SUMMARY | 2024-11-15 14:43 | XMS_ITS | Encounter Summary ---
Author Organization [employer] Address [address] [place] [address] Care Team Providers Care Manager Of Financial Planning Name Role Phone Queenie Valdovinos YARN SPINNER Primary Care Provider [phone] Encounter Details Date Type Department Care Team [...] Description 11/21/2024 3:00 PM EDT Office Visit [facility] [address] [place], [place] [phone] Lilian Gillespie [address] [place], [place] [phone] 03/28/2025 3:00 PM EDT Office Visit [facility] OPTOMETRY [address] [place], [place] [phone] Renu Story, OD [address] [place] [address] documented as of this encounter Visit Diagnoses Not on filedocumented in this encounter Additional Health Concerns Assessment Noted Time PHQ-9 Depression Total Score: 13 024 3:52 PM EDT documented as of this encounter Care Teams Manager Of Financial Planning Relationship Specialty Start Date End Date Queenie Valdovinos FNP [address] [place] [address] PCP - General Family Medicine 04/07/22 documented as of this encounter
--- OUTSIDE RECORDS SUMMARY | 2024-11-15 14:43 | XMS_ITS | Encounter Summary ---
Author Organization [employer] Address [address] [place] [address] Care Team Providers Care Feltmaker And Weigher Name Role Phone Queenie Valdovinos Primary Care Provider [phone] Reason for Visit * Reason Onset Date Comments Referral 08/07/2024 Encounter Details Date Type Department Care Team ([facility] st Contact Info) Description 08/07/2024 Telephone [facility] [address] [place] [address] Queenie Valdovinos FNP [address] [place], [place] [phone] Referral Social History Tobacco Use Types Packs/Day [...] with others, in a hotel, in a mcfp, living outside on the street, on a [...] Description 11/21/2024 3:00 PM EDT Office Visit [facility] [address] [place] [address] Lilian Gillespie [address], [place] [phone] 03/28/2025 3:00 PM EDT Office Visit [facility] [address] [place], [place] [phone] Renu Story, TRAV [address] [place] [address] documented as of this encounter Visit Diagnoses Not on filedocumented in this encounter Additional Health Concerns Assessment Noted Time PHQ-9 Depression Total Score: 13 024 3:52 PM EDT documented as of this encounter Care Teams Feltmaker And Weigher Relationship Specialty Start Date End Date Queenie Valdovinos FNP [address] [place] [address] PCP - General Family Medicine 04/07/22 documented as of this encounter
[2024-11-22 15:03] LABS: Factor VIII Activity Clotting 115 % normal (50-180); PTT, Activated 29 sec (23-32); Ristocetin Cofactor 164 % normal (42-200)
== END 2024-11-15 12:05 | disposition home or self-care (01) ==
LOC: HO.LAB 12:04
PROVIDERS: PCP Registered Nurse; Visit Provider Advanced Practice Midwife
DX: N92.0 Excessive and frequent menstruation with regular cycle (principal)
CPT/HCPCS: 36415; 84443; 85027; 85240; 85245; 85246; 85247; 85610; 85730

== ENCOUNTER 2024-12-21 12:59 | Outpatient (REF) | payer MEDICAID, SELFPAY ==
--- NOTE | ~2024-12-21 | US_ITS ---
EXAMINATION: US PELVIS CLINICAL INFORMATION: Menorrhagia. COMPARISON: None relevant. TECHNIQUE: Ultrasound of the pelvis is performed using both transabdominal and transvaginal transducers along with Doppler. Transvaginal imaging is performed due to inadequate visualization transabdominally. FINDINGS: Uterus: The uterus is retroverted, retroflexed, and measures 8.3 x 4.4 x 5.8 cm. The cervix is normal in appearance. The double wall endometrial thickness is 8 mm. It is uniform without irregularity. The uterus is smooth in contour and has normal myometrial echogenicity. No visible fibroid. Adnexa: Both ovaries are visualized. There is normal color flow to the adnexa. There is no ovarian torsion. There is no pelvic ascites or fluid collection. Right ovary measures 2.0 x 2.7 x 2.1 cm. Volume = 5.9 mL. Normal sonographic appearance. Left ovary measures 2.3 x 1.4 x 1.9 cm. Volume = 3.2 mL. Normal sonographic appearance. US/US pelvic and transvaginal IMPRESSION: Normal pelvic ultrasound. Electronically signed by: Jeb Vences MD 12/21/2024 01:52 PM EDT
--- OUTSIDE RECORDS SUMMARY | 2024-12-21 13:01 | XMS_ITS | Clinical Summary ---
Author Organization [employer] Address [address] [place] [address] Care Team Providers Care Pattern Vault Clerk Name Role Phone Queenie Valdovinos RASHAD Primary Care Provider [phone] Allergies Active Allergy Reactions Criticality Noted Date [...] neuralgia 60 tablet 3 08/10/19 25 Active ibuprofen (IBU) 800 MG tablet [...] DAILY 90 capsule 3 11/14/19 25 Active fluticasone (Flonase) 50 MCG/ACT nasal spray SPRAY 1 SPRAY IN EACH NOSTRIL 2 TIMES DAILY, SHAKE GENTLY,PRIME PUMP,CLEAN TIP AND REPLACE CAP 48 mL 12/14/19 25 Active fluticasone (Flonase) 50 MCG/ACT nasal spray Administer 1 spray into each nostril 2 times daily. Shake gently. Before first use, prime pump. After use, clean tip and replace cap. 16 g 1 09/21/19 25 025 Discontinued Active Problems Problem Noted Date Diagnosed Date [...] 05/28/24 Dysmenorrhea 04/29/2024 Overview (04/29/2024): Following with [facility] [employer]IGATION OFFICER (consult Jun 2023) Assessment & Plan (05/28/2024 9:39 PM EDT): -Initiated on POP Slynd on 04/27/24. 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 -Referral to [facility] sent 10/08/24 Assessment & Plan (02/26/2023 10:45 AM EDT): Contact info for [facility] provided Anxiety 03/10/2020 Overview (06/18/2023): ?? Established with therapist Catrachita through [facility] (on wait list for psychiatrist through [facility]) ?? Cont fluoxetine 40mg daily [...] Encounters Date Type Department Care Team Description 12/13/2024 Refill [facility] [address] [place] [address] [place] NP 12/07/2024 Patient Outreach [facility] [address], [place] [phone] Queenie Valdovinos FNP Care Coordination (Outreach) 11/29/2024 Telephone [facility] [address], [place] [phone] Queenie Valdovinos FNP May recall 11/20/2024 Orders Only [facility] [address] [place] [address] Robert Guadarrama CNM Atypical squamous cells cannot exclude high grade squamous intraepithelial lesion on cytologic smear of cervix (ASC-H) (Primary Dx) 11/16/2024 Telephone [facility] [address] [place] [address] Queenie Valdovinos FNP 11/15/2024 Telephone [facility] [address] [place] [address] Queenie Valdovinos FNP 11/13/2024 2:15 PM EDT Procedure Visit [facility] [address] [place] [address] Robert Guadarrama CNM Menorrhagia with regular cycle (Primary Dx); Cervical cancer screening; Family planning counseling; Attention deficit hyperactivity disorder (ADHD), unspecified ADHD type; Anxiety 11/13/2024 Travel 11/01/2024 Patient Outreach [facility] [address] [place] [address] Queenie Valdovinos FNP Care Coordination (Outreach) 10/19/2024 Population Health Risk Score [facility] (C[facility]) Department [address] [place] [phone] Provider, Population Health Generic 10/19/2024 Patient Outreach [facility] [address], [place] [phone] Queenie Valdovinos FNP Care Coordination (Outreach) 10/08/2024 10:15 AM EST Office Visit [facility] [address] [place] [address] Queenie Valdovinos FNP Electrical shock sensation (Primary Dx); Encounter for immunization 10/08/2024 Travel 10/05/2024 Telephone [facility] [address] [place] [address] Emilee Alvarenga MA Chart Prep 10/03/2024 Patient Outreach [facility] [address] [place] [address] Queenie Valdovinos FNP Care Coordination (Outreach) 09/26/2024 Patient Outreach [facility] [address] [place] [address] Queenie Valdovinos FNP Care Coordination (Outreach) from Last 3 Months Immunizations Immunization Administration Dates Next Due DTaP 04/18/2001, 8,1996,05/23,1996 [...] Q2 Not on file 09/05/2024 Comments No Intention Date Recorded No desire to become (finding) 0 11/13/2024 Sex and Gender Information Value Date Recorded [...] Care Team (Late st Contact Info) Description 03/28/2025 3:00 PM EDT Office Visit [facility] [address] [place], [place] [phone] Renu Story, OD [address] [place], [place] [phone] Health Maintenance Due Date Last Done Comments Dental Oral Exam 1995 Dental Prophylaxis 1995 Dental X-Ray: Bitewings 1995 Dental X-Ray: Full Mouth 1995 Depression Screening 11/03/2024 11/04/2023, 11/04/19 24 Colposcopy 11/14/2024 SDOH Screening 09/05/2025 09/05/2024 Alcohol/Substance Use Screening 10/08/2025 10/08/2024 Family Planning (PISQ) 11/13/2025 11/13/2024 Tobacco Screening 11/13/2025 11/13/2024 Lipid Panel 10/28/2027 10/27/2022 Pap Smear 11/14/2027 11/13/2024 DTaP/Tdap/Td Vaccines (9 - Td or Tdap) [...] on patient's age to complete this topic Meningococcal B Vaccine Aged Out No l onger eligible based on patient's age to complete [...] 12:34 PM EDT Menorrhagia with regular cycle VON WILLEBRAND DISEASE PANEL WITHOUT COLLAGEN BINDING ASSAY (CBA) Routine 11/15/2024 12:34 PM EDT Menorrhagia with regular cycle CBC Routine 11/15/2024 12:34 PM EDT Menorrhagia with regular cycle PAP SMEAR Routine 11/13/2024 12:00 AM EDT Cervical cancer screening HEPATITIS C VIRAL RNA, QUANTITATIVE, REAL-TIME PCR Routine 05/10/2024 4:16 PM EDT control counseling HIV 1/2 ANTIGEN/ANTIBODY, FOURTH GENERATION W/RFL Routine 05/10/2024 4:16 PM EDT control counseling LIPID PANEL, STANDARD Routine 10/27/2022 12:25 PM EDT Routine health maintenance from Last 3 Months or Most Recently Relevant to Health Maintenance Results * von Willebrand Disease Panel without Collagen Binding Assay (CBA) (11/15/2024 12:34 PM EDT) Factor VIII Activity, Clotting 115 50 - 180 % normal [facility] Comment:For additional infor mation please refer to:http://education.Jobs The Word/faq/XLY336(This link is being provided for informational/educational purposes only.) Partial Thromboplastin Time, Activated 29 23 - 32 sec [facility] Comment:This test has not be en validated for monitoringunfractionated heparin therapy. For testing thatis validated for this type of therapy, please referto the Heparin Anti-Xa assay (test code 33209).For additional information, please refer tohttp://education.CME/faq/FGY750(This link is being provided for informational/educational purposes only.) Von Willebrand Factor Antigen 158 50 - 217 % [facility] Von Willebrand Ag, Multimeric see note [facility] Comment:Normal distribution of von Willebrand Factor antigenmultimers.Reviewed by Domenico Cruz M.D.This test was developed and its analytical performancecharacteristics have been determined by [employer]. [place], [place]. It hasnot been cleared or approved by the U.S. Food and DrugAdministration. This assay has been validated pursuantto the CLIA regulations and is used for clinicalpurposes.THIS TEST WAS PERFORMED AT:[facility] [id number] [place] [address]HRHJRVFMARCUS JARAMILLO MD,PHD Comment see note [facility] Comment:Normal von Willebran d Evaluation Ristocetin Cofactor 164 42 - 200 % normal [facility] 11/15/2024 12:3 4 PM EDT 11/15/2024 12:35 PM EDT [facility] BLOOD ORDERABLES Amarilys l Result Performing Organization Address [facility] Co de Phone Number [facility] [address] [place] [phone] * TSH W/Reflex to FT4 (11/15/2024 12:34 PM EDT) TSH reflex Free T4 1.45 0.32 - 4.0 uIU/mL [facility] Blood Venous blood specimen / Unknown 11/15/2024 12:34 PM EDT 11/15/2024 12:35 PM EDT Robert [facility] hospital[facility] LAB BLOOD ORDERABLES Amarilys l Result Performing Organization Address [facility] de Phone Number [facility] [address] [place] [phone] * Partial Thromboplastin Time, Activated (APTT) (11/15/2024 12:34 PM EDT) Partial Thromboplastin Time 35.0 26.0 - 36.8 SEC [facility] Comment:For information rega rding the monitoring of direct thrombininhibitors, please refer to Pharmacy. Blood Venous blood specimen / Unknown 11/15/2024 12:34 PM EDT 11/15/2024 12:35 PM EDT [facility] LAB BLOOD ORDERABLES Amarilys l Result Performing Organization Address [facility]/State/ZIP Co de Phone Number [facility] [address] [place] [address] [phone] * Prothrombin Time-INR (11/15/2024 12:34 PM EDT) [facility] Prothrombin Time 12.4 10.9 - 12.4 SEC [facility] INTERNATIONAL NORM RATIO 1.1 0.9 - 1.1 [facility] Comment:INTERNATIONAL NORMAL IZED RATIO (INR) REFERENCE [...] PM EDT 11/15/2024 12:35 PM EDT us Robert Guadarrama [facility] LAB BLOOD ORDERABLES Amarilys l Result [facility] [address] [place] [address] [phone] * CBC (11/15/2024 12:34 PM EDT) [facility] White Blood Count 10.3 4.8 - 10.8 X10*3/uL [facility] Red Blood Count 5.07 4.20 - 5.50 X10*6/uL [facility] Hemoglobin 14.5 12.0 - 16.0 g/dl [facility] Hematocrit 43.6 37.0 - 47.0 % [facility] Mean Corpuscular Volume 86.0 80.0 - 98.0 fL [facility] Mean Corpuscular Hemoglobin 28.6 27.0 - 33.0 pg [facility] Mean Corpuscular HGB Conc 33.3 31.0 - 35.0 g/dl [facility] Red Cell Distribution Width 13.4 11.0 - 16.0 % [facility] Platelet Count 222 160 - 400 X10*3/uL [facility] Mean Platelet Volume 9.5 9.4 - 12.3 fL [facility] NRBC Pct Auto 0.0 0.0 - 0.2 /100WBC [facility] NRBC Abs Auto 0.000 0.0 - 0.012 X10*3/uL [facility] Blood Venous blood specimen / Unknown 11/15/2024 12:34 PM EDT 11/15/2024 12:35 PM EDT us Robert Guadarrama CNM LAB BLOOD ORDERABLES Amarilys gilliland Result [facility] [address] [place] [phone] * Pap Smear (11/13/2024 12:00 AM EDT) Swab Cervix uteri structure / Unknown 11/13/2024 11/14/2024 6:00 AM EDT Narrative [facility] - 11/20/2024 7:37 AM EDT ----- ------- Name: Siria Gonzalez ? Age/Sex: 29/F ? : 1995 Unit#: [id number] ?? Attend Dr: ROBERT GUADARRAMA CNM ?Re11/13/24 ?Status: DEP REF ? Location: HO.HHCLNP ? Disch: ? ----- ------- SPEC : [id number] ? RECD: 11/14/24 ? STATUS: ??SOUT ? REQ NUM: [id number] ? OPAL: 11/13/24 ? SUBM DR: ROBERT GUADARRAMA CNM ? ENTERED: ??11/14/24 ?SP TYPE: Pap Smr ?OTHR DR: ? ORDERED: ??Pap Smear, PAP path review ? Interpretation ?? ABNORMAL PAP TEST. ?? Satisfactory for evaluation, with atypical squamous cells - cannot exclude a high grade ?? squamous intraepithelial lesion (ASC-H). ?? Mild inflammation. ? HPV High Risk: ??Positive ? HPV Genotyping 16: ??Negative ?? HPV Genotyping 18: ??Negative ?Clinical Information LMP:Unknown date Previous PAP test:Unknown date/findings ? Material Received ?? ThinPrep-Cervical ----- ------- Signed (signature on file) Damion Osorio MD 11/20/24 0737 ? ----- ------- ? END OF REPORT ? us Robert Guadarrama [facility] CYTOLOGY ORDERABLES F inal Result [facility] [address] [place] [phone] * Hepatitis C Viral RNA, Quantitative, Real-Time PCR (05/10/2024 4:16 PM EDT) Pathologist [facility] Hepatitis C Viral Load <15 NOT DETECTED NOT DETECTED IU/mL [facility] HCV Log PCR <1.18 NOT DETECTED NOT DETECTED Log IU/mL [facility] Comment:For additional infor martita, please refer tohttp://education.Jobs The Word/faq/GRA12b0(This link is being provided for informational/educational purposes only.)THIS TEST WAS PERFORMED AT:[facility] [address] [id number] SORIANO MD Blood 05/10/2024 4:16 PM EDT 05/10/2024 5:19 PM EDT Queenie Valdovinos [facility] LAB BLOOD ORDERABLES Final Res ult Performing Organization Address [facility] Co de Phone Number [facility] [address] [place] [address] [phone] * HIV-1/2 Antigen and Antibodies, Fourth Generation, with Reflexes (05/10/2024 4:16 PM EDT) Pathologist [facility] HIV AB/AG Nonreactive Nonreactive [facility] Comment:HIV-1 p24 Ag and/or HIV-1/HIV-2 Ab not detected.A test result that is nonreactive does not exclude thepossibility of exposure to or infection with HIV-1 and/orHIV-2. Nonreactive results in this assay for individualswith prior exposure to HIV-1 and/or HIV-2 may be due toantigen and antibody levels that are below the limit ofdetection of this assay.The [employer] HIV Ag/Ab Combo assay result andsupplemental assay results should be interpreted inconjunction with the patient's clinical presentation,history and other laboratory results. If the results areinconsistent with clinical evidence, additional testing issuggested to confirm the result. Blood Venous blood specimen / Unknown 05/10/2024 4:16 PM EDT 05/10/2024 5:19 PM EDT Queenie Valdovinos [facility] LAB BLOOD ORDERABLES Final Res ult Performing Organization Address [facility]/ZIP Co de Phone Number [facility] [address] [place] [address] [phone] * (ABNORMAL) Lipid Panel, Standard (10/27/2022 12:25 PM EDT) Pathologist [facility] Cholesterol, Total 131 <200 mg/dL [facility] HDL Cholesterol 42(L) > OR = 50 mg/dL [facility] Triglycerides 73 <150 mg/dL [facility] LDL Cholesterol 74 mg/dL (calc) [facility] Comment: Reference range: <100 Desirable range <100 mg/dL for primary prevention; ?? <70 mg/dL for patients with CHD or diabetic patients with > or = 2 CHD risk factors. LDL-C is now calculated using the Eulogio calculation, which is a validated novel method providing better accuracy than the Friedewald equation in the estimation of LDL-C. Edwin SS et al. BETSY. 2013;310(19): 0666-2224 (http://education.CME/faq/WTX441) Chol/HDLC Ratio 3.1 <5.0 (calc) [facility] Non-HDL Cholesterol 89 <130 mg/dL (calc) [facility] Comment: For patients with diabetes plus 1 major ASCVD risk factor, treating to a non-HDL-C goal of <100 mg/dL (LDL-C of <70 mg/dL) is considered a therapeutic option. Blood Venous blood specimen / Unknown 10/27/2022 12:25 PM EDT 10/27/2022 12:28 PM EDT us Queenie Valdovinos [facility] BLOOD ORDERABLES Final Res ult [facility] [address] [place] [phone] [facility] [address] [place] [phone] from Last 3 Months or Most Recently Relevant to Health Maintenance Insurance [facility] [place] AD[place] Care Teams Pattern Vault Clerk Relationship Specialty Start Date End Date Queenie Valdovinos FNP [address] [place] [phone] PCP - General Family Medicine 04/07/22
--- OUTSIDE RECORDS SUMMARY | 2024-12-21 13:01 | XMS_ITS | Continuity of Care Document ---
Author Organization [facility] Address [address], [address], [address] [place] [id number]- Care Team Providers Care Pit Tanner Name Role Phone Aruna LAZO, Queenie Chan Primary Care Physicia n [place] [facility] [place](s[place] 11/20/24 - 12/20/24 [facility] [address], [address] [place] [id number]- Encounter Type: Triage Allergies, Adverse Reactions, Alerts Substance Criticality Severity Reaction Reaction Severity Status Niño Unable to assess criticality Unknown RASH/HIVES Active Immunizations Given and Recorded Vaccine Date Status Refusal Reason Influenza Virus Vaccine (oldterm) 1 05/30/20 Recor ded Influenza Virus Vaccine (oldterm) 2 06/10/18 Recor ded Influenza Virus Vaccine (oldterm) 06/05/14 Recorde d Influenza Virus Vaccine (oldterm) 3 04/27/12 Recor ded Influenza Virus Vaccine (oldterm) 4 08/16/06 Recor ded tetanus/diphtheria/pertussis, acel(Tdap) 5 04/09/20 Recorded tetanus/diphtheria/pertussis, acel(Tdap) 6 03/06/18 Recorded tetanus/diphtheria/pertussis, acel(Tdap) 7 06/05/14 Recorded influenza virus vaccine, inactivated 04/27/12 Give n influenza virus vaccine, inactivated 08/16/06 Give n Meningococcal Conjugate Vaccine 04/27/12 Given Tet/Diphth/Acel, Pertussis (oldterm) 10/26/07 Give n Human Papillomavirus Vaccine 02/13/07 Given Human Papillomavirus Vaccine 8 02/13/07 Recorded Human Papillomavirus Vaccine 10/14/06 Given Human Papillomavirus Vaccine 9 10/14/06 Recorded Human Papillomavirus Vaccine 10 08/16/06 Given Human Papillomavirus Vaccine 11 08/16/06 Recorded Diphth/Tet/Pertussis, Acel (oldterm) 04/18/01 Give n Diphth/Tet/Pertussis, Acel (oldterm) 03/27/98 Give n Diphth/Tet/Pertussis, Acel (oldterm) 96 Give n Diphth/Tet/Pertussis, Acel (oldterm) 96 Give n Diphth/Tet/Pertussis, Acel (oldterm) 96 Give n Poliovirus Vaccine, Inactivated 04/18/01 Given Poliovirus Vaccine, Inactivated 12 04/18/01 Record ed Poliovirus Vaccine, Inactivated 03/27/98 Given Poliovirus Vaccine, Inactivated 13 03/27/98 Record ed Poliovirus Vaccine, Inactivated 96 Given Poliovirus Vaccine, Inactivated 14 96 Record ed Poliovirus Vaccine, Inactivated 96 Given Poliovirus Vaccine, Inactivated 15 96 Record ed Poliovirus Vaccine, Inactivated 96 Given Poliovirus Vaccine, Inactivated 16 96 Record ed diphtheria/tetanus/pertussis, acel(DTaP) 17 04/18/01 Recorded diphtheria/tetanus/pertussis, acel(DTaP) 18 03/27/98 Recorded diphtheria/tetanus/pertussis, acel(DTaP) 19 96 Recorded diphtheria/tetanus/pertussis, acel(DTaP) 20 96 Recorded diphtheria/tetanus/pertussis, acel(DTaP) 21 96 Recorded Measles/Mumps/Rubella Virus Vaccine 03/24/00 Given Measles/Mumps/Rubella Virus Vaccine 22 03/24/00 Re corded Measles/Mumps/Rubella Virus Vaccine 05/22/97 Given Measles/Mumps/Rubella Virus Vaccine 23 05/22/97 Re corded Varicella Virus Vaccine 09/04/97 Given Varicella Virus Vaccine 24 09/04/97 Recorded Varicella Virus Vaccine 05/22/97 Given Varicella Virus Vaccine 25 05/22/97 Recorded Haemophilus B Conj Vaccine (oldterm) 05/22/97 Give n Haemophilus B Conj Vaccine (oldterm) 26 05/22/97 R ecorded Haemophilus B Conj Vaccine (oldterm) 96 Give n Haemophilus B Conj Vaccine (oldterm) 27 96 R ecorded Haemophilus B Conj Vaccine (oldterm) 96 Give n Haemophilus B Conj Vaccine (oldterm) 28 96 R ecorded Haemophilus B Conj Vaccine (oldterm) 96 Give n Haemophilus B Conj Vaccine (oldterm) 29 96 R ecorded Hepatitis B Vaccine (old term) 96 Given Hepatitis B Vaccine (old term) 30 96 Recorde d Hepatitis B Vaccine (old term) 96 Given Hepatitis B Vaccine (old term) 31 96 Recorde d Hepatitis B Vaccine (old term) 96 Given Hepatitis B Vaccine (old term) 32 96 Recorde d 1Result Comment: Route: Intramuscular Ham Facer: [employer] 2Result Comment: Route: Intramuscular Ham Facer: [employer] 3Result Comment: Unit: Unknown Route: Intramuscular 4Result Comment: Unit: Unknown Route: Intramuscular 5Result Comment: Route: Intramuscular Ham Facer: [employer] 6Result Comment: Route: Intramuscular Ham Facer: [employer] 7Result Comment: Route: Intramuscular Ham Facer: [employer] 8Result Comment: Unit: Unknown Route: Intramuscular 9Result Comment: Unit: Unknown Route: Intramuscular 10Admin Note: VIS 04/12/2006 /GARDISAL GIVEN 11Result Comment: Unit: Unknown 12Result Comment: Unit: Unknown Route: Intramuscular 13Result Comment: Unit: Unknown Route: Intramuscular 14Result Comment: Unit: Unknown Route: Intramuscular 15Result Comment: Unit: Unknown Route: Intramuscular 16Result Comment: Unit: Unknown Route: Intramuscular 17Result Comment: Unit: Unknown Route: Intramuscular 18Result Comment: Unit: Unknown Route: Intramuscular 19Result Comment: Unit: Unknown Route: Intramuscular 20Result Comment: Unit: Unknown Route: Intramuscular 21Result Comment: Unit: Unknown Route: Intramuscular 22Result Comment: Unit: Unknown Route: Intramuscular 23Result Comment: Unit: Unknown Route: Intramuscular 24Result Comment: Unit: Unknown Route: Intramuscular 25Result Comment: Unit: Unknown Route: Intramuscular 26Result Comment: Unit: Unknown Route: Intramuscular 27Result Comment: Unit: Unknown Route: Intramuscular 28Result Comment: Unit: Unknown Route: Intramuscular 29Result Comment: Unit: Unknown Route: Intramuscular 30Result Comment: Unit: Unknown Route: Intramuscular 31Result Comment: Unit: Unknown Route: Intramuscular 32Result Comment: Unit: Unknown Route: Intramuscular Medications Adderall 10 mg oral tablet 1 tablet = 10 mg, By Mouth, 2 times a day, 0 Refills, Maintenance, 06/10/23 1:20:00 PM EDT, Partial fill upon patient request if the prescription is for a schedule II opioid drug. Start Date: 06/10/23 Status: Ordered Repeat number: 1 Benadryl 25 mg oral capsule 1 capsule = 25 mg, By Mouth, Daily at bedtime, PRN Nausea & Vomiting, # 30 capsule, 0 Refills, Maintenance, 07/16/23 6:30:00 PM EST, Capsule, [facility]/pharmacy #[id number], Partial fill upon patient request if the prescription is for a schedule II opioid drug., 173, cm, 06/10/23 13:18:00 EDT, Height, 74.5,kg, 07/16/23 13:18:00 EST, Dry Weight Start Date: 07/16/23 Status: Ordered Quantity: 30.0 Unit: capsule Repeat number: 1 Cannabis (Schedule I Substance) 0 Refills, Maintenance, 05/12/21 11:33:00 AM EDT, Partial fill upon patient request if the prescription is for a schedule II opioid drug. Start Date: 05/12/21 Status: Ordered Repeat number: 1 cholecalciferol 2000 intl units oral tablet 1 tablet = 50 mcg, By Mouth, Daily, 0 Refills, Maintenance, 07/19/23 12:48:00 PM EST, Partial fill upon patient request if the prescription is for a schedule II opioid drug. Start Date: 07/19/23 Status: Ordered Repeat number: 1 FLUoxetine 40 mg oral capsule 1 capsule = 40 mg, By Mouth, Daily, # 30 capsule, 0 Refills, Maintenance, 07/19/23 12:46:00 PM EST,Capsule, Partial fill upon patient request if the prescription is for a schedule II opioid drug. Start Date: 07/19/23 Status: Ordered Quantity: 30.0 Unit: capsule Repeat number: 1 Mifeprex 200 mg oral tablet 1 tablet = 200 mg, By Mouth, Once, given in office, # 1 tablet, 0 Refills, Maintenance, 07/19/23 10:45:00 AM EST, Partial fill upon patient request if the prescription is for a schedule II opioid drug. Start Date: 07/19/23 Status: Ordered Quantity: 1.0 Unit: tablet Repeat number: 1 mirtazapine 7.5 mg oral tablet 7.5 Unknown, Oral, 1 Refill(s), Take 1 tablet (7.5 mg) by mouth at bedtime., 0 Refills, 07/17/23 7:00:00 PM EST, Partial fill upon patient request if the prescription is for a schedule II opioid drug. Start Date: 07/17/23 Status: Ordered Repeat number: 1 miSOPROStol 200 mcg oral tablet See Instructions, 24 -48 hours after mifeprex dose, place 2 tabs between cheek and gums on EACH side, let dissolve for 30 min then swallow the rest with water, # 4 tablet, 0 Refills, Maintenance, 07/19/23 10:40:00 AM EST, [facility]/pharmacy #[id number], Partial fill upon patient request if the prescription is for a schedule II opioid drug., 173, cm, 07/19/23 9:40:00 EST, Height, 74.5, kg, 07/16/23 13:18:00 EST, Dry Weight Start Date: 07/19/23 Status: Ordered Quantity: 4.0 Unit: tablet Repeat number: 1 Indication: Encounter for elective termination of Reglan 10 mg oral tablet 1 tablet = 10 mg, By Mouth, 3 times a day, PRN Nausea & Vomiting, # 28 tablet, 5 Refills, Maintenance, 07/16/23 6:30:00 PM EST, [facility]/pharmacy #[id number], Partial fill upon patient request if the prescription is for a schedule II opioid drug., 173, cm, 06/10/23 13:18:00 EDT, Height, 74.5, kg, 07/16/23 13:18:00 EST, Dry Weight Start Date: 07/16/23 Status: Ordered Quantity: 28.0 Unit: tablet Repeat number: 6 Problem List Condition Confirmation Course Effective Dates Status Health St atus Informant Abdominal Pain Confirmed Active Anxiety Confirmed Active ADHD Confirmed Active Alternating constipation and diarrhea Confirmed Active Depression Confirmed Active [id number] condition: persistent GI symptoms and weight loss Confirmed Active Hip pain Confirmed Active Heavy menses Confirmed Active Nausea & vomiting Confirmed Active Compulsive skin picking Confirmed Active Urge incontinence Confirmed Active Vaginal discharge Confirmed Active Social History Social History Type Response Smoking Status 5-9 cigarettes (betw een 1/4 to 1/2 pack)/day in last 30 days entered on: 05/12/21 Sex Sex Representation Female (finding) Patient Care team information Care Team Personnel Name: Aruna LAZO, Queenie Chan Position: Reference Physician Member Role: PCP Address: [address] [place] [address] Telecom: Name: Isabel Beasley Position: S Outreach Member Role: Lifetime Consulting Physician Care Team Related Persons Name: MICHELL JIMÉNEZ Name: NUHA HERZOG Insurance Providers Guarantor name: T[employer] Health Plan Information #: 1 Payer: [employer] Member Number: NA Policy Number: NA Group Number: NA
--- OUTSIDE RECORDS SUMMARY | 2024-12-21 13:01 | XMS_ITS | Encounter Summary ---
Author Organization [employer] Address [address] [place] [address] Care Team Providers Care Housing Liaison Name Role Phone Queenie Valdovinos Primary Care Provider [phone] Reason for Visit * Reason Onset Date Comments Referral 08/07/2024 Encounter Details Date Type Department Care Team ([facility] st Contact Info) Description 08/07/2024 Telephone [facility] [address] [place] [address] Queenie Valdovinos FNP [address] [place], [place] [id number] Referral Social History Tobacco Use Types Packs/Day [...] Description 03/28/2025 3:00 PM EDT Office Visit [facility] [address] [place] [address] Renu Story, OD [address] [place] [address] documented as of this encounter Visit Diagnoses Not on filedocumented in this encounter Additional Health Concerns Assessment Noted Time PHQ-9 Depression Total Score: 13 024 3:52 PM EDT documented as of this encounter Care Teams Housing Liaison Relationship Specialty Start Date End Date Queenie Valdovinos FNP [address] [place] [address] PCP - General Family Medicine 04/07/22 documented as of this encounter
== END 2024-12-21 13:00 | disposition home or self-care (01) ==
LOC: HO.US 12:59
PROVIDERS: PCP Registered Nurse; Visit Provider Advanced Practice Midwife
DX: N92.0 Excessive and frequent menstruation with regular cycle (principal)
CPT/HCPCS: 76830; 76856

== ENCOUNTER → 2024-12-21 13:01 | Outpatient (BNV) | payer MEDICAID, SELFPAY | PROVIDERS: PCP Registered Nurse; Visit Provider Radiology Diagnostic Radiology | DX: N92.0 Excessive and frequent menstruation with regular cycle (principal) | CPT/HCPCS: 76830; 76856 ==